=== PATIENT | male | born 1960 | race Caucasian/White ===

== ENCOUNTER 2017-10-08 22:07 | Inpatient (IN) ==
[2017-10-08 23:11] LABS: Basophils # 0.1 K/mcL (0.0-0.2); Basophils % 1.7 %; Eosinophils # 0.3 K/mcL (0.0-0.6); Eosinophils % 3.9 %; Hematocrit 48.8 % (37.5-50.1); Hemoglobin 17.2 g/dL (12.9-16.9); Immature Granulocytes % 0.3 % (0-4); Lymphocytes # 1.5 K/mcL (0.6-4.6); Lymphocytes % 21.2 %; Mean Corpuscular HGB Conc 35.2 g/dL (31.6-35.5); Mean Corpuscular Hemoglobin 32.4 pg (28.0-33.3); Mean Corpuscular Volume 91.9 fL (83.0-100.0); Mean Platelet Volume 8.7 fL (9.4-12.4); Neutrophils # 4.2 K/mcL (1.6-8.9); Platelet Count 380 K/mcL (140-400); Red Blood Count 5.31 M/mcL (4.19-5.50); Red Cell Distribution Width 13.1 % (11.5-14.5); Segmented Neutrophils % 58.9 %
[2017-10-08 23:31] LABS: Bilirubin,Urine Negative (Negative); Blood,Urine Negative (Negative); Clarity,Urine Clear (Clear); Color,Urine Yellow (Yellow); Glucose,Urine (UA) Normal (Normal); Ketones,Urine Negative (Negative); Leukocyte Esterase,Urine Negative (Negative); Nitrite,Urine Negative (Negative); PH,Urine 6.5 pH Units (5.0-8.0); Protein,Urine Negative (Neg-Trace); Specific Gravity,Urine 1.015 (1.010-1.025); Urobilinogen,Urine Normal (Normal)
[2017-10-08 23:34] LABS: Alanine Aminotransferase 14 Units/L (7-52); Albumin 4.5 g/dL (3.5-5.7); Albumin/Globulin Ratio 1.6 (1.1-2.2); Alkaline Phosphatase 88 Units/L (34-104); Aspartate Amino Transferase 24 Units/L (13-39); BUN/Creatinine Ratio 17 (6-26); Bilirubin,Direct 0.1 mg/dL (0.0-0.2); Bilirubin,Indirect 0.2 mg/dL (0.0-1.2); Bilirubin,Total 0.3 mg/dL (0.3-1.0); Blood Urea Nitrogen 12 mg/dL (6-20); Calcium 9.6 mg/dL (8.6-10.3); Carbon Dioxide 22 mEq/L (23-29); Chloride 106 mEq/L (98-107); Globulin 2.8 g/dL (2.4-3.5); Glucose 102 mg/dL (70-105); Osmolality,Calculated 284 (280-300); Sodium 137 mEq/L (136-145); Total Protein 7.3 g/dL (6.4-8.9); eGFR For African Americans > 60 (> 60); eGFR For Non-African Americans > 60 (> 60)
[2017-10-08 23:36] LABS: Troponin I 0.15 ng/mL (< 0.04)
[2017-10-08] MEDS ORDERED: Heparin 25,000 UNIT/500 ML D5W 25,000 UNIT/500 ML BAG IVC SCH (23:45)
[2017-10-08] MEDS ORDERED: Aspirin 81 MG TAB.CHEW ONE (23:47)
[2017-10-08] MEDS ORDERED: *HR* Heparin 5,000 UNIT/ML VIAL ONE (23:47)
[2017-10-08] MEDS ORDERED: 0.9 % Sodium Chloride 1,000 ML ONE (23:47)
[2017-10-08] MEDS ORDERED: *HR* Ticagrelor 90 MG TABLET ONE (23:47)
[2017-10-08] MEDS ORDERED: *HR* Heparin 5,000 UNIT/ML VIAL IVP ONE (23:59)
[2017-10-08] MEDS ORDERED: *HR* Heparin 5,000 UNIT/ML VIAL IVP PRN ×2 (23:59)
[2017-10-09] MEDS ORDERED: *HR* Ticagrelor 90 MG TABLET PO ONE (00:01)
[2017-10-09] MEDS ORDERED: Aspirin 81 MG TAB.CHEW PO STA (00:01)
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
[2017-10-09] MEDS ORDERED: Heparin 1,000 UNITS/500 mL 500 ML ONE (00:14)
[2017-10-09] MEDS ORDERED: *HR* Heparin 10,000 UNIT/10 ML VIAL ONE (00:14)
[2017-10-09] MEDS ORDERED: 0.9 % Sodium Chloride 1,000 ML ONE ×2 (00:14→00:39)
[2017-10-09] MEDS ORDERED: ISOVUE-370 200 ML INFUS..BTL IV ONE ×2 (00:15→00:39)
[2017-10-09] MEDS ORDERED: Nitroglycerin 1,000 MCG/10 ML VIAL IV ONE (00:15)
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
--- NOTE | 2017-10-09 01:30 | Invasive Diagnostic Lab Proc ---
Name: Lance Preciado Date of Study: 10/09/2017 Date: 1960 Ht: 72.0in Medical Record#: [id number] Age: 57 Wt: 163.14lb Gender: Male BSA: 1.95 Order #: [id number] BMI: 22.1 Physicians Procedure Physician: Austin Salas DO Referring MD: Referring MD: Staff Name Position Time In AlixHakan RN Monitor 12:37 AM Rose Aguilera RN Coffee Roaster Helper 12:37 AM Thalia Mckinley RT Scrub 12:37 AM Indications Indication STEMI Procedures Performed Procedure L HRT ARTERY/VENTRICLE ANGIO PRQ CARD REVASC VA 1 VSL Pre-Procedure Checklist Informed consent is complete signed and on chart. H&P is on chart. ID band is on and ID verified with patient. Patient NPO for procedure The procedure was described for the patient and questions were answered. Blood Pressure: 115/84 ECG is on chart. Rhythm: NSR Plan of Care Patient will tolerate the procedure without complications. Adequate level of comfort will be maintained. Hemodynamics will remain stable Patient will recover from procedure without complications. Respiratory function will be maintained. Cardiac rhythm will remain stable. Patient temperature will be maintained. Patient and/or family have verbalized understanding of the procedure. Patient Education Chief Complaint/Reason for Test: Cardiac Cath Developmental Category: Adult (18-64 years) Developmentally Appropriate for Age: Yes Learning Barriers: None Education Needs: Procedure Education Method: Verbal Information Taught: Cardiac Cath Educational Evaluation: Able to repeat information Intravenous Access Time IV Size Location DC'd Fluid/Drip Rate Units RN 12:29 AM 18g 1 1/4" Patent On Arrival Lt Arm Rose Aguilera RN 12:29 AM 18g 1 1/4" Patent On Arrival Rt Antecubital Rose Aguilera RN Allergies No Known Allergies NKA Vital Signs Time BP (mmHg) HR (bpm) O2 Sat. RR (bpm) LOC 12:29 AM 128 / 87 83 96 % 18 5 = Fully awake and oriented or at pre-proc level 12:49 AM / % 4 = Oriented but drowsy 12:49 AM / % 4 = Oriented but drowsy 01:04 AM / % 4 = Oriented but drowsy 12:50 AM 126 / 88 85 100 % 12:54 AM 135 / 91 85 99 % 12:59 AM 138 / 85 83 99 % 01:04 AM 136 / 89 87 99 % 01:09 AM 109 / 71 86 96 % 01:15 AM 129 / 98 87 98 % Procedural Medications Time Medication Dose Units Method Given By 12:50 AM Oxygen 2 L/min nasal cannula Rose Aguilera RN 12:53 AM Lidocaine 2% 10 ml Subcutaneous Austin Salas DO 01:07 AM Nitroglycerin 100 mcg Intracoronary Austin Salas DO ASA Classification: CLASS III- Severe systemic disease (i.e. prior AMI, diabetes with vascular complications, morbid obesity) Emergent Procedure: ASA score is assumed Bernabe Score Preprocedure Postprocedure Activity 2- Moves 4 extremities sustained head lift Activity 2- Moves 4 extremities sustained head lift Circulation 2- SBP +/= 20 points of pre-anesthetic level Circulation 2- SBP +/= 20 points of pre-anesthetic level Consciousness 2- Awake and alert oriented x 3 Consciousness 2- Awake and alert oriented x 3 O2 Saturation 2- Able to maintain O2 satruation of 92% on room air O2 Saturation 2- Able to maintain O2 satruation of 92% on room air Respiratory 2- Able to deep breathe and cough well Respiratory 2- Able to deep breathe and cough well Total Score 10 Total Score 10 Contrast Agent: Isovue Diagnostic Contrast: 60 ml Total Contrast: 60 ml Fluoro Dose: 438 mGy Activated Clotting Time Time Seconds to Clot 01:03 AM 311 Procedure Log Time Note Enter By 12:37 AM Pt arrived to central lab technician 2 at 00:37 [facility] 12:37 AM Hakan Thomson RN Position: Monitor Time in: 00:37 [facility] 12:37 AM Rose Aguilera RN Position: Coffee Roaster Helper Time in: 00:37 [facility] 12:38 AM Thalia Mckinley Position: Scrub Time in: 00:37 [facility] 12:38 AM Patient charges- Angio tray pack, Navilyst 3mm J, Pulse Oximetry and ACIST tubing and transducer [facility] 12:38 AM Hair removed from procedure site in procedure lab using clippers. Bilateral groin prepped with Chloraprep by Thalia Mckinley, then patient was draped. Skin intact. [facility] 12:38 AM Physician arrived 00:38 [facility] 12:38 AM Leroy completed jcallan 12:38 AM Sign in performed according to hospital policy. jcallihan 12:38 AM Procedure start 00:38 jcallihan 12:48 AM CathStat 12:48 AM Vitals capture started with the following parameters, Patient=Adult, Interval=5 min, Initial Vkfqkgou=758 mmHg, Deflation Rate=3 mmHg, Cuff placed on Right Arm 12:49 AM Time: 00:49 Patient comfortable and pain free: Yes jcallihan 12:49 AM Time: 00:49LOC: 4 = Oriented but drowsy jcallihan 12:50 AM HR=85 bpm, KQEA=553/88 mmhg, ToC2=926.0 %, Comment=sr 12:50 AM Time: 00:50 Oxygen on at 2 L/min per nasal cannula [facility] 12:50 AM Pressure channel 2 zeroed. 12:52 AM Clinical Presentation: [facility] or [facility] AM Time out performed according to hospital policy [facility] 12:53 AM Time: 00:53 10 ml Lidocaine 2% to right groin Subcutaneous Given by Austin Salas DO [facility] 12:53 AM Micro-Introducer Kit utilized for sheath placement jcallihan 12:54 AM HR=85 bpm, AOIC=945/91 mmhg, SpO2=99.0 %, Comment=sr 12:54 AM Access obtained by percutaneous puncture. 6Fr 10cm Terumo [place] sheath placed in right Femoral artery. [id number] jcallan 12:55 AM 6Fr FL 4 catheter inserted over the wire [facility] 12:57 AM LCA angiography performed in multiple views. jcallihan 12:57 AM Catheter removed jcallihan 12:59 AM Recorded Pressure: LV, HR=84, Condition=Condition 1 (Left Ventricle) LV 130/-3/0 12:59 AM 6Fr FR 4 [facility] C[facility]ter selectively placed in left [facility] 12:59 AM Bolus angiogram of left Ventricle complete: HAND INJECTED 10 ML jcallihan 12:59 AM HR=83 bpm, STDJ=909/85 mmhg, SpO2=99.0 % 12:59 AM Recorded Pressure: LV, Ao, HR=82, Condition=Condition 1 (Left Ventricle) LV 129/82/81, (Aorta) Ao 129/71/96 01:00 AM repositioned catheter to RCA jcallihan :00 AM RCA angiography performed in multiple views. an :00 AM Catheter removed jcallan : AM PCI Status Emergency jcallihan :01 AM PCI Indication: Immediate PCI for STEMI jcallihan 01:02 AM PCI lesion in Mid RCA. Pre Stenosis: 90 Pre CHRIS Flow: 3: Complete and Brisk Flow/Perfusion jcallihan :02 AM 6Fr JR 4 Runway guide catheter was used to cannulate the PCI vessel successfully. reused? No jcallihan :02 AM .014 ChoICE PT Extra Support 300cm guide wire across target lesion- successful. reused? No jcallan :02 AM Inflation device was opened. jcallihan :03 AM At 01:03 the ACT was 311 seconds. jcallihan :03 AM Recorded Pressure: Ao, HR=82, Condition=Condition 1 (Aorta) Ao 130/73/97 01:04 AM HR=87 bpm, QQUR=297/89 mmhg, SpO2=99.0 %, Comment=sr 01:04 AM Time: 00:49 Patient comfortable and pain free: Yes jcallihan :04 AM Time: 00:49LOC: 4 = Oriented but drowsy jcallihan :05 AM 3.0mm x 16mm Synergy drug-eluting stent across target lesion- successful [facility][id number] [facility] AM Stent deployed @ 14 niles for [facility] AM Stent delivery system removed intact. jcallan :07 AM Time: 01:07 Nitroglycerin 100 mcg Intracoronary Given by Austin Salas DO [facility] AM Guide wire removed intact. jcallihan 01:08 AM Coronary Dominance: right jcallihan 01:09 AM Right Coronary, Right Posterior Descending Arteries with Right Posterolateral and Acute Marginal branches with 90 % stenosis. If graft is supplying this area, 0 % stenosis jcallihan :09 AM Circumflex, Obtuse Marginal, Left Posterior Descending, and Left Posterolateral Coronary Arteries with 80 % stenosis. If graft is supplying this area, 0 % stenosis jcallihan :09 AM Lesion found in Mid Circumflex. Pre Stenosis: 80 Pre CHRIS Flow: 3: Complete and Brisk Flow/Perfusion jcallihan 01:09 AM HR=86 bpm, MBPI=392/71 mmhg, SpO2=96.0 %, Comment=sr 01:09 AM Guide catheter removed intact. jcallihan 01:10 AM Groin shot obtained. jcallihan 01:10 AM Procedure completed at 01:10 jcallihan 01:10 AM Did you address CHRIS flow and Dominance? Yes jcallihan 01:10 AM Sign out completed: Radiation Dose 438 mGy Fluoro Time: 4.6 Isovue 370 - 200ml contrast 60 ml given by Austin Salas DO. Complications: NoneCardiac Rehab Consult needed: YesConfirmed administered medications: Yes jcallihan 01:11 AM Isovue 370 - 200ml,2 Bottle(s) used. jcallihan 01:11 AM Sheath left in place to be pulled on floor/holding areaV+Pad jcallihan 01:11 AM Estimated Blood Loss: less than 20cc jcallihan 01:11 AM Post ECG NSR jcallihan 01:11 AM Post Blood Pressure 109/71 jcallihan 01:11 AM 01:11 Post Pulses Bilateral DP & PT 2+ jcallihan 01:11 AM Information taught Cardiac Cath, PCI, and METER INSTALLER/Stent jcallihan 01:11 AM Education needs Procedure, Plan of Care, and Responsibilities of Patient in Care jcallihan 01:11 AM Learning barriers :None jcallihan 01:11 AM Education Methods Verbal jcallihan 01:11 AM Education evaluation Able to repeat information jcallihan 01:12 AM Site status No bleeding/hematoma - Rt Groin as reported by Thalia Mckinley RT at 01:11 jcallihan 01:12 AM Opsite applied jcallihan 01:12 AM Hematoma? No. jcallihan 01:12 AM Plavix, Effient or Brilinta given Yes jcallihan 01:12 AM RN going to check for family members jcallihan 01:12 AM Complications: None jcallihan 01:12 AM Fluoro Time: 4.6 jcallihan 01:12 AM Isovue 370 - 200ml contrast 60 ml given by Austin Salas. jcallihan 01:12 AM Radiation Dose 438 mGy jcallihan 01:15 AM HR=87 bpm, BEJT=344/98 mmhg, SpO2=98.0 %, Comment=sr 01:19 AM Time: 01:04LOC: 4 = Oriented but drowsy jcallihan 01:19 AM Time: 01:04 Patient comfortable and pain free: Yes jcallihan 01:21 AM Patient out of room: 01:21 jcallihan 01:21 AM Report given to Trip VERDUZCO Pt taken to ICU Room #7. 01:21 jcallihan 01:22 AM ASA Class CLASS III- Severe systemic disease (i.e. prior AMI, diabetes with vascular complications, morbid obesity) jcallihan Complications Complication None None Hemodynamics Pressures Site Systolic/A Wave Diastolic/V Wave Mean LV 130 -3 0 LV 129 82 81 AO 129 71 96 AO 130 73 97 Post Procedure Information Blood Pressure: 109/71 mmHg Rhythm: NSR Post procedural instructions were given Site Checks Time Location Status Staff Sheath In? Note 01:11 AM Rt Groin No bleeding/hematoma Thalia Mckinley RT Pulses Time Site Pre-Procedure Post-Procedure Note 1:11:00 AM Bilateral DP & PT 2+ Updated by Hakan Thomson RN on 10/09/2017 1:23:18 AM electronically signed on 10/09/2017 1:23:54 AM with status of Final
[2017-10-09 01:40] LABS: Amphetamine Screen,Urine Negative ng/mL (Cutoff=1000); Barbiturate Screen,Urine Negative ng/mL (Cutoff=200); Benzodiazepines Screen,Urine Negative ng/mL (Cutoff=200); Cannabinoid Screen,Urine Negative ng/mL (Cutoff = 50); Cocaine Screen,Urine Negative ng/mL (Cutoff= 300); Opiate Screen,Urine Negative ng/mL (Cutoff=300); Phencyclidine Screen,Urine Negative ng/mL (Cutoff=25)
[2017-10-09 01:45] LABS: Ethanol 287 mg/dL (Less than 10)
--- NOTE | 2017-10-09 01:56 | Cardiology Consult Note ---
Date of Encounter: 10/09/17 Time of Encounter: 00:00 Assessment and Plan (1) STEMI (ST elevation myocardial infarction) Current Visit: Yes Status: Acute change to full code, proceed with emergent LHX/possible. Discussion w patient/family: The assessment and plan as outlined above was discussed with the patient and/or family members who expressed understanding and agreement. All questions were answered. Thank you for involving us in the care of your patient. Please call with any questions. History of Present Illness Consult date: 10/08/17 Consult reason: abnormal EKG Chief complaint: Syncope History of present illness: Mr. Preciado is a 57 year old male who presented to ER by squad with complaint of dizziness, syncope. Pt was filling his keosene heater, became dizzy, fell forward, striking his head and shoulder, had trouble getting up, called squad who then transported pt to hospital. Pt reports has been drinking beer all evening, estimates has had six to eight beers. He underwent intial evalauation for neurologic eval, including head CT due to syncope, mild confusion. EKG obtained showed mild St SEGMENT elevation inf leads, concerning, but not diagnostic. Pt underwent repeat EKG which then met critieria for STEMI. Discussed with Dr. Wise in ER, pt has previously determined his code satus to be DNR. Discussed with pt, although is obviously under the infuence, and Dr Wise, including my recommendations to proceed with emergent LHC/PCI. Discussed code status, will change to full code x 24 hours, discuss again when pt more sober. Past Med Surg Social Fam HX - Past Medical History Medical history: hepatitis, hyperlipidemia, hypertension, other (Squamous cell lung cancer.) Psychiatric history: anxiety, depression - Social History Smoking Status: Current every day smoker Smokeless Tobacco Status: No Alcohol use: heavy, recent Drug use: none Medications and Allergies Budesonide/Formoterol 160/4.5 [Symbicort 160/4.5] 2 puff IH BIDR 02/11/17 [ History] Lisinopril [Zestril] 10 mg PO DAILY 02/11/17 [History] Simvastatin [Zocor] 10 mg PO DAILY 02/11/17 [History] Trazodone HCl 100 mg PO QPM 02/11/17 [History] HYDROcodone/Acet 7.5/325 mg [[place] 7.5-325 mg] 1 - 1.5 tab PO Q6H PRN 05/12/17 [ History] Pregabalin [Lyrica] 100 mg PO QID 07/22/17 [History] 3 Allergy/AdvReac Type Severity Reaction Status Date / Time No Known Allergies Allergy Verified 10/08/17 23:51 All Systems Review: The remainder of the systems were reviewed and are negative - Constitutional Constitutional: lethargy - Respiratory Respiratory: cough, dyspnea, other (Pt is completing chemo and radiation tx for lung cancer. ) - Psychiatric Psychiatric: depression (on disablility since 2001 for depression) Physical Examination General: Conversant, No Apparent Distress HEENT: Atraumatic, Normocephaly Neck: No JVD Cardiac: Reg Rate and Rhythm, Normal S1 and S2, No Murmur Lungs: Normal Breath Sounds, No Wheeze, Rales, Rhonchi Neuro: Alert and responsive Skin: No rashes noted on visualized skin Musculoskeletal: No Chest Wall Tenderness Extremities: No Clubbing, No Cyanosis Results 10/08/17 23:00 10/08/17 23:00 Consult Discharge Plan - Plan Referrals: Sandra Bell MD [Primary Care Provider] -
[2017-10-09] MEDS ORDERED: *HR* Atropine Sulfate 1 MG/10 ML SYRINGE ONE (02:57)
[2017-10-09 03:02] LABS: BUN/Creatinine Ratio 17 (6-26); Blood Urea Nitrogen 11 mg/dL (6-20); Calcium 8.9 mg/dL (8.6-10.3); Carbon Dioxide 22 mEq/L (23-29); Chloride 111 mEq/L (98-107); Glucose 83 mg/dL (70-105); Osmolality,Calculated 293 (280-300); Potassium 4.1 mEq/L (3.5-5.1); Sodium 142 mEq/L (136-145); eGFR For African Americans > 60 (> 60); eGFR For Non-African Americans > 60 (> 60)
[2017-10-09 03:05] LABS: Activated Partial Thrombo Time 41.2 Seconds (26.0-36.0)
[2017-10-09] MEDS: 0.9 % Sodium Chloride 1,000 ML IVC SCH ×3 (03:05→20:44)
[2017-10-09 03:13] LABS: Basophils # 0.1 K/mcL (0.0-0.2); Basophils % 1.7 %; Eosinophils # 0.3 K/mcL (0.0-0.6); Eosinophils % 4.7 %; Hemoglobin 16.4 g/dL (12.9-16.9); Immature Granulocytes % 0.3 % (0-4); Lymphocytes # 1.4 K/mcL (0.6-4.6); Lymphocytes % 20.1 %; Mean Corpuscular HGB Conc 34.9 g/dL (31.6-35.5); Mean Corpuscular Hemoglobin 32.1 pg (28.0-33.3); Mean Platelet Volume 8.8 fL (9.4-12.4); Monocytes % 14.8 %; Neutrophils # 4.1 K/mcL (1.6-8.9); Platelet Count 365 K/mcL (140-400); Prothrombin Time 11.1 Seconds (9.4-12.1); Red Blood Count 5.11 M/mcL (4.19-5.50); Red Cell Distribution Width 13.2 % (11.5-14.5); Segmented Neutrophils % 58.4 %
[2017-10-09] MEDS: Aspirin 81 MG TAB.CHEW PO SCH (08:58)
[2017-10-09] MEDS: *HR* Ticagrelor 90 MG TABLET PO SCH ×2 (08:58→21:43)
[2017-10-09] MEDS: *HR* HYDROcodone/Acet 5/325 mg TABLET PO PRN ×3 (10:16→23:09)
--- NOTE | 2017-10-09 10:33 | Internal Med History&Physical ---
Date of Encounter: 10/09/17 Time of Encounter: 10:33 Internal Medicine - H&P: HPI Chief complaint: Chest pain Admitted From: Emergency Dept Plans for Post Hospital Care: Home History of present illness: Mr. Preciado is a 57 year old male patient who presented overnight in the ER after a fall while intoxicated. He struck his head and arm but did not sustain any significant injury. He had a CT-Head and C-Spine both w/o contrast which did not show acute pathology including fracture, dislocation or ICH. While in the ER his BAL was 287 but he denies a history of DTs or alcohol withdrawal seizures. His ECG showed ST elevation and his troponins were elevated so Cardiology was called for a STEMI. He was taken to the cardiac cath lab radiology technologist for PTCA. He tolerated the procedure and was sent to the ICU. He's chest pain free and hemodynamically stable. 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 Because of the urgency to go to the cardiac cath lab radiology technologist he was not officially admitted overnight. He will now be admitted to the Hospitalist service and cardiology will continue to follow in consultation. Past Med Surg Social Fam HX - Past Medical History Medical history: hepatitis, hyperlipidemia, hypertension, other (Squamous cell lung cancer.) Psychiatric history: anxiety, depression - Past Surgical History Surgical History: splenectomy - Social History Smoking Status: Current every day smoker Packs per day: 1 Smokeless Tobacco Status: No Alcohol use: heavy, recent Drug use: none Internal Medicine - H&P: Meds Budesonide/Formoterol 160/4.5 [Symbicort 160/4.5] 2 puff IH BIDR 02/11/17 [ History] Lisinopril [Zestril] 10 mg PO DAILY 02/11/17 [History] Simvastatin [Zocor] 10 mg PO DAILY 02/11/17 [History] Trazodone HCl 100 mg PO QPM 02/11/17 [History] Pregabalin [Lyrica] 150 mg PO BID 07/22/17 [History] Albuterol Sulfate [Proair Hfa] 2 puff IH Q4H PRN 10/09/17 [History] Aspirin Enteric Coated [Aspirin EC] 81 mg PO DAILY 10/09/17 [History] Diclofenac Sodium [Voltaren] 75 mg PO BID 10/09/17 [History] HYDROcodone/Acet 5/325 mg [[place] 5-325 mg] 1.5 tab PO Q6H PRN 10/09/17 [History] Venlafaxine XR (24 HR) [Effexor XR] 75 mg PO DAILY 10/09/17 [History] 3 Allergy/AdvReac Type Severity Reaction Status Date / Time No Known Allergies Allergy Verified 10/08/17 23:51 All Systems PM: A 10-system review of systems was performed and is negative for pertinent findings except as documented above in the HPI. - Constitutional Constitutional: no chills, no fever(s), no falls, no lethargy - EENT Eyes: no blurry vision, no diplopia Nose, mouth and throat: no dental pain, no epistaxis, no nasal congestion - Cardiovascular Cardiovascular ROS IM: chest pain, no diaphoresis, no dyspnea, no edema - Respiratory Respiratory: no hemoptysis, no wheezing, no stridor - Gastrointestinal Gastrointestinal: no belching, no change in stool character, no melena, no tenesmus - Genitourinary Genitourinary ROS male: no dysuria - Musculoskeletal Musculoskeletal ROS IM: no arthralgias, no myalgias - Psychiatric Psychiatric: no anxiety, no depression, no suicidal ideation - Constitutional Vitals: Temp Pulse Resp BP Pulse Ox 97.9 F 112 35 160/82 93 10/09/17 08:00 10/09/17 10:00 10/09/17 10:00 10/09/17 10:00 10/09/17 10:00 General appearance: Present: cooperative, A&O X 3, pleasant, no acute distress - Head Head exam: Present: atraumatic, normocephalic - Eye Eye exam: Present: EOMI, PERRL, conjuntiva pink, sclera anicteric Pupils: Present: PERRL - Neck Neck exam general surgery: Present: supple, trachea midline. Absent: lymphadenopathy - Respiratory Respiratory exam: Present: CTAB. Absent: accessory muscle use, rales, rhonchi, wheezes - Cardiovascular Cardiovascular exam: Present: RRR, +S1, +S2. Absent: diastolic murmur, gallop, rubs, systolic murmur - GI/Abdominal GI/Abdominal exam: Present: normal bowel sounds, soft, no peritoneal signs. Absent: distended, guarding, rebound, rigid, tenderness - Extremities Exam Extremities exam: Present: calf tenderness, warm. Absent: cyanotic, pedal edema - Neurological Exam Neurological exam: Present: CN II-XII intact, oriented X3, no focal deficits. Absent: pronater drift, facial droop, speech deficit - Psychiatric Psychiatric exam: Present: normal affect, normal mood - Skin Skin exam: Present: dry, intact Internal Med - H&P Results - Labs CBC & Chem 7: 10/09/17 02:27 10/09/17 02:27 Labs: Short CBC 10/09/17 Range/Units 02:27 WBC 7.0 (4.3-11.1) K/mcL Hgb 16.4 (12.9-16.9) g/dL Hct 47.0 (37.5-50.1) % Plt Count 365 (140-400) K/mcL Neutrophils # 4.1 (1.6-8.9) K/mcL BMP 10/09/17 02:27 Sodium 142 Potassium 4.1 Chloride 111 H Carbon Dioxide 22 L BUN 11 Creatinine 0.64 L Glucose 83 Calcium 8.9 - Assessment and plan (1) STEMI (ST elevation myocardial infarction) Current Visit: Yes Status: Acute Assessment and plan: Continue telemetry Continue aspirin and Brilinta Continue statin and BB CP free today No hematoma at cath site Cardiology still following Qualifiers: Involved coronary artery: right coronary artery Qualified Code(s): I21.11 - ST elevation (STEMI) myocardial infarction involving right coronary artery (2) Intoxication Current Visit: Yes Status: Acute Assessment and plan: Add CIWA protocol Pt denies h/o DTs or ETOH withdrawal seizures He does not appear tremulous (3) Squamous cell carcinoma Current Visit: No Status: Chronic Assessment and plan: S/p RTX and Chemo. Now on Immunotherapy He continues to f/u as OP with Oncology Code(s): C44.92 - Squamous cell carcinoma of skin, unspecified (4) Hepatitis C Current Visit: No Status: Chronic Assessment and plan: In remission s/p treatment Qualifiers: Qualified Code(s): B18.2 - Chronic viral hepatitis C Code(s): B19.20 - Unspecified viral hepatitis C without hepatic coma (5) Chronic obstructive pulmonary disease without exacerbation Current Visit: No Status: Chronic (6) Essential hypertension Current Visit: No Status: Chronic Assessment and plan: Continue home medications Code(s): I10 - Essential (primary) hypertension - Time Spent With Patient Total time spent is greater than 50% in coordination of care (as documented) at patient's floor/unit and/or counseling patient: Greater than 35 minutes
--- NOTE | 2017-10-09 11:39 | Cardiology Progress Note ---
Date of Encounter: 10/09/17 Time of Encounter: 11:36 Assessment and Plan (1) STEMI (ST elevation myocardial infarction) Current Visit: Yes Status: Acute S/P STEMI, emergent LHC overnight with KEDAR to mRCA. Final report pending. TTE pending. DAPT (ASA and Brilinta) uninterrupted x 1 year. Pt verbalizes understanding. Continue Statin, BB, ACEi. Pt denies chest pain overnight. Intermittent dyspnea, but known underlying pulmonary issues. Right femoral access site healing well. No bleeding, hematoma, or ecchymosis noted. No significant events on telemetry. Obtain EKG s/p STEMI and revascularization. Continue to follow. Qualifiers: Involved coronary artery: right coronary artery Qualified Code(s): I21.11 - ST elevation (STEMI) myocardial infarction involving right coronary artery (2) Essential hypertension Current Visit: Yes Status: Acute Elevated this AM--BB was started and resumed Lisinopril at lower dose. Uptitrate as necessary. (3) Tobacco abuse Current Visit: Yes Status: Acute Smoking cessation counseling given. Discussion w patient/family: The assessment and plan as outlined above was discussed with the patient and/or family members who expressed understanding and agreement. All questions were answered. Thank you for involving us in the care of your patient. Please call with any questions. I will discuss all the above with Dr. Sherman and make changes as necessary. Subjective Principal diagnosis: STEMI Interval history: S/P STEMI and emergent LHC overnight with KEDAR to mRCA--final report pending. TTE pending. Pt denies chest pain. Intermittent dyspnea. Troponin 0.15. Objective Vital Signs, Last 4 Hours Temp Pulse Resp BP Pulse Ox 10/09/17 10:00 112 35 160/82 93 10/09/17 09:11 100 10/09/17 09:00 100 35 159/88 95 10/09/17 08:00 97.9 F 99 16 143/83 94 Vital Signs Temp Pulse Pulse Resp BP Pulse Ox 10/09/17 10:00 112 35 160/82 93 10/09/17 09:11 100 10/09/17 09:00 100 35 159/88 95 10/09/17 08:00 97.9 F 99 16 143/83 94 10/09/17 07:00 102 26 163/93 94 10/09/17 06:00 85 16 137/78 95 10/09/17 05:00 90 16 104/66 95 10/09/17 04:00 84 16 144/87 95 10/09/17 03:42 85 85 18 114/69 94 10/09/17 03:25 84 84 18 122/81 95 10/09/17 03:20 84 84 20 122/68 95 10/09/17 03:15 81 81 20 123/70 95 10/09/17 03:10 81 81 20 112/90 94 10/09/17 03:00 83 16 117/79 95 10/09/17 02:53 86 86 12 132/97 10/09/17 02:00 81 16 128/83 95 10/09/17 01:50 82 10/09/17 01:40 97.8 F 84 86 22 130/86 96 10/09/17 01:34 97.8 F 84 18 130/86 96 10/09/17 00:20 82 18 115/84 95 10/09/17 00:13 83 18 127/81 96 10/08/17 23:55 83 18 128/87 96 10/08/17 22:48 97.2 F L 79 20 126/77 98 Intake and Output 10/08/17 10/09/17 10/09/17 23:59 07:59 15:59 Intake Total 400 / 400 Output Total 1200 / 1200 2100 / 2100 Balance -1200 / -1200 -1700 / -1700 Intake: Oral 400 / 400 Output: Urine 1200 / 1200 2099 / 2100 Other: Meal Breakfast Percent of Meal Consumed 100% Stool Size Moderate Stool Consistency loose liquid Stool Color Brown # Bowel Movement Diapers 1 Weight 74.843 kg Blood Glucose* 78 General: Conversant, No Apparent Distress HEENT: Atraumatic, Normocephaly, Mucus Membranes Moist Neck: No JVD, Normal carotid pulses Cardiac: Reg Rate and Rhythm, Normal S1 and S2, No Murmur Lungs: Normal Breath Sounds, No Wheeze, Rales, Rhonchi Neuro: Alert and responsive, No focal deficits noted Abdomen: Soft, Non-Tender Skin: Other (right femoral access site healing well. No bleeding, hematoma or ecchymosis noted.) Musculoskeletal: No Chest Wall Tenderness Extremities: No Clubbing, No Cyanosis, No Edema, Normal Pulses Results 10/09/17 02:27 10/09/17 02:27 Lab Results 10/09/17 10/09/17 10/09/17 02:27 02:27 02:27 WBC 7.0 Hgb 16.4 Hct 47.0 Plt Count 365 INR 1.0 APTT 41.2 H Sodium 142 Potassium 4.1 Chloride 111 H Carbon Dioxide 22 L BUN 11 Creatinine 0.64 L Glucose 83 Calcium 8.9 Short CBC 10/09/17 10/08/17 Range/Units 02:27 23:00 WBC 7.0 7.1 (4.3-11.1) K/mcL Hgb 16.4 17.2 H (12.9-16.9) g/dL Hct 47.0 48.8 (37.5-50.1) % Plt Count 365 380 (140-400) K/mcL Neutrophils # 4.1 4.2 (1.6-8.9) K/mcL BMP 10/09/17 10/08/17 Range/Units 02: 23:00 Sodium 142 137 (136-145) mEq/L Potassium 4.1 4.0 (3.5-5.1) mEq/L Chloride 111 H 106 (98-107) mEq/L Carbon Dioxide 22 L 22 L (23-29) mEq/L BUN 11 12 (6-20) mg/dL Creatinine 0.64 L 0.69 L (0.70-1.30) mg/dL Glucose 83 102 (70-105) mg/dL Calcium 8.9 9.6 (8.6-10.3) mg/dL Cardiac Enzymes 10/08/17 Range/Units 23:00 Troponin I 0.15 H* (< 0.04) ng/mL Liver Function 10/08/17 Range/Units 23:00 Total Bilirubin 0.3 (0.3-1.0) mg/dL Direct Bilirubin 0.1 (0.0-0.2) mg/dL AST 24 (13-39) Units/L ALT 14 (7-52) Units/L Alkaline Phosphatase 88 (34-104) Units/L Albumin 4.5 (3.5-5.7) g/dL Urine 10/08/17 Range/Units 23:21 Urine Color Yellow (Yellow) Urine Clarity Clear (Clear) Urine pH 6.5 (5.0-8.0) pH Units Ur Specific [place] 1.015 (1.010-1.025) Urine Protein Negative (Neg-Trace) mg/dL Urine Glucose (UA) Normal (Normal) mg/dL Impressions Cervical Spine CT 10/08/17 22:53 IMPRESSION: Degenerative and postoperative changes with no evidence for acute fracture. D/ / Fidel Morris MD / Fidel Morris MD Interpreting Provider: Fidel Morris MD Chest X-Ray 10/08/17 22:53 IMPRESSION: Negative portable study. D/ / Elizabeth Valero Cha, MD / Elizabeth Valero Cha, MD Interpreting Provider: Elizabeth Valero Cha, MD Head CT 10/08/17 22:53 IMPRESSION: No acute intracranial abnormality. D/ / Fidel Morris MD / Fidel Morris MD Interpreting Provider: Fidel Morris MD Active Medications Hydrocodone Bitart/Acetaminophen ([place] 5-325 Mg) 1.5 tab PO Q6HR PRN PRN Reason: Pain Stop: 04/10/18 10:05 Last Admin: 10/09/17 10:16 Dose: 1.5 tab Aspirin (Aspirin) 81 mg PO DAILY [facility] Stop: 04/10/18 09:01 Last Admin: 10/09/17 08:58 Dose: 81 mg Carvedilol (Coreg) 3.125 mg PO BIDWM [facility] Stop: 04/10/18 08:01 Last Admin: 10/09/17 08:58 Dose: 3.125 mg Sodium Chloride (0.9 % Sodium Chloride) 1,000 mls @ 100 mls/hr IVC .Q10H [facility] Stop: 04/10/18 01:46 Last Admin: 10/09/17 03:05 Dose: 100 mls/hr Lisinopril (Zestril) 5 mg PO DAILY [facility] PRN Reason: Protocol Stop: 04/10/18 10:16 Last Admin: 10/09/17 10:16 Dose: 5 mg Rosuvastatin Calcium (Crestor) 40 mg PO HS [facility] Stop: 04/10/18 21:01 Ticagrelor (Brilinta) 90 mg PO BID [facility] Stop: 04/10/18 09:01 Last Admin: 10/09/17 08:58 Dose: 90 mg - Imaging and Cardiology Echo: pending - EKG Interpretation EKG results cardiology: other (12 hr tele AVG HR 91, SR, no significant pauses or arrhythmias noted.) Consult Discharge Plan - Plan Referrals: Sandra Bell MD [Primary Care Provider] -
[2017-10-09] MEDS: *HR* Heparin 5,000 UNIT/ML VIAL SQ SCH ×3 (12:23→19:22)
[2017-10-09] MEDS ORDERED: *HR* HYDROcodone/Acet 5/325 mg TABLET PO PRN (15:11)
[2017-10-09] MEDS: Nicotine 21 MG PATCH.TD24 TD SCH (15:27)
[2017-10-09] MEDS: Venlafaxine XR (24 HR) 75 MG CAP.ER.24H PO SCH (15:27)
[2017-10-09] MEDS ORDERED: Ipratropium/Albuterol Neb 3 ML ONE (16:02)
[2017-10-09] MEDS: Budesonide/Formoterol 160/4.5 MDI IH SCH ×4 (16:10→23:00)
[2017-10-09] MEDS ORDERED: traZODone 50 MG TABLET PO SCH (18:00)
[2017-10-09 19:50] LABS: Basophils # 0.1 K/mcL (0.0-0.2); Basophils % 0.8 %; Eosinophils # 0.2 K/mcL (0.0-0.6); Eosinophils % 2.4 %; Hematocrit 46.2 % (37.5-50.1); Hemoglobin 16.3 g/dL (12.9-16.9); Immature Granulocytes % 0.2 % (0-4); Lymphocytes # 0.8 K/mcL (0.6-4.6); Lymphocytes % 8.3 %; Mean Corpuscular HGB Conc 35.3 g/dL (31.6-35.5); Mean Corpuscular Hemoglobin 32.3 pg (28.0-33.3); Mean Corpuscular Volume 91.5 fL (83.0-100.0); Mean Platelet Volume 9.1 fL (9.4-12.4); Neutrophils # 7.8 K/mcL (1.6-8.9); Platelet Count 357 K/mcL (140-400); Red Blood Count 5.05 M/mcL (4.19-5.50); Segmented Neutrophils % 78.3 %
[2017-10-09 20:05] LABS: BUN/Creatinine Ratio 19 (6-26); Blood Urea Nitrogen 15 mg/dL (6-20); Calcium 9.1 mg/dL (8.6-10.3); Carbon Dioxide 22 mEq/L (23-29); Chloride 106 mEq/L (98-107); Glucose 103 mg/dL (70-105); Osmolality,Calculated 281 (280-300); Potassium 3.8 mEq/L (3.5-5.1); Sodium 135 mEq/L (136-145); eGFR For African Americans > 60 (> 60); eGFR For Non-African Americans > 60 (> 60)
[2017-10-09] MEDS ORDERED: Ondansetron 4 MG/2 ML VIAL IVP PRN (20:17)
[2017-10-09] MEDS: traZODone 50 MG TABLET PO SCH (21:43)
[2017-10-09] MEDS: Diclofenac Sodium 75 MG TABLET PO SCH (21:43)
[2017-10-09] MEDS: Pregabalin 75 MG CAPSULE PO SCH (21:43)
[2017-10-10] MEDS: *HR* Heparin 5,000 UNIT/ML VIAL SQ SCH ×2 (06:13→17:22)
[2017-10-10] MEDS: Budesonide/Formoterol 160/4.5 MDI IH SCH ×4 (07:43→20:35)
[2017-10-10] MEDS: 0.9 % Sodium Chloride 1,000 ML IVC SCH ×2 (08:08→18:39)
[2017-10-10] MEDS: Venlafaxine XR (24 HR) 75 MG CAP.ER.24H PO SCH (08:18)
[2017-10-10] MEDS: Pregabalin 75 MG CAPSULE PO SCH ×2 (08:18→21:51)
[2017-10-10] MEDS: Nicotine 21 MG PATCH.TD24 TD SCH (08:18)
[2017-10-10] MEDS: Diclofenac Sodium 75 MG TABLET PO SCH ×2 (08:19→21:52)
[2017-10-10] MEDS: *HR* HYDROcodone/Acet 5/325 mg TABLET PO PRN ×3 (08:20→21:51)
[2017-10-10] MEDS: *HR* Ticagrelor 90 MG TABLET PO SCH ×2 (08:20→21:50)
--- NOTE | 2017-10-10 09:24 | Cardiology Progress Note ---
Date of Encounter: 10/10/17 Time of Encounter: 09:21 Assessment and Plan (1) STEMI (ST elevation myocardial infarction) Current Visit: Yes Status: Acute S/P STEMI, emergent LHC overnight with KEDAR to mRCA. Final report pending. Troponin 0.15, 0.22. TTE LVEF 55%. Mild concentric left ventricular hypertrophy. Normal right ventricular structure and function. Mild mitral regurgitation. Aortic valve leaflet morphology not well visualized. Mild-moderate aortic regurgitation. No pulmonary hypertension. DAPT (ASA and Brilinta) uninterrupted x 1 year. Pt verbalizes understanding. Continue Statin, BB, ACEi. Will give 30 day free card for Brilinta to have filled by our pharmacy today. Pt denies chest pain overnight. Intermittent dyspnea, but known underlying pulmonary issues. Right femoral access site healing well. No bleeding, hematoma, or ecchymosis noted. No significant events on telemetry. Post STEMI EKG obtained. Will also obtain EKG today. Cardiology signing off. Reconsult PRN. Will coordinate outpt follow-up in 1 week. Please keep pt inpt for another 24 hours. If stable with no events on tele, okay to d/c home tomorrow, 10/11/17. Qualifiers: Involved coronary artery: right coronary artery Qualified Code(s): I21.11 - ST elevation (STEMI) myocardial infarction involving right coronary artery (2) Essential hypertension Current Visit: Yes Status: Acute Currently controlled. Continue BB and ACEi. Uptitrate as necessary. (3) Tobacco abuse Current Visit: Yes Status: Acute Smoking cessation counseling given. Discussion w patient/family: The assessment and plan as outlined above was discussed with the patient and/or family members who expressed understanding and agreement. All questions were answered. Thank you for involving us in the care of your patient. Please call with any questions. I will discuss all the above with Dr. Sherman and make changes as necessary. Subjective Principal diagnosis: STEMI Interval history: S/P STEMI and LHC with KEDAR to mRCA--final report pending. TTE resulted--LVEF 55% . Mild concentric left ventricular hypertrophy. Normal right ventricular structure and function. Mild mitral regurgitation. Aortic valve leaflet morphology not well visualized. Mild-moderate aortic regurgitation. No pulmonary hypertension. Pt denies acute complaints this AM. Objective Vital Signs, Last 4 Hours Temp Pulse Resp BP Pulse Ox 10/10/17 07:45 16 94 10/10/17 06:28 98.1 F 77 17 120/64 92 Vital Signs Temp Pulse Resp BP Pulse Ox 10/10/17 07:45 16 94 10/10/17 06:28 98.1 F 77 17 120/64 92 10/10/17 04:19 98.5 F 86 16 125/84 94 10/09/17 22:54 18 92 10/09/17 22:51 97.9 F 87 16 132/85 91 10/09/17 21:45 81 18 155/89 93 10/09/17 20:25 97.5 F L 86 20 169/89 95 10/09/17 19:30 83 20 160/85 93 10/09/17 18:54 83 15 166/95 93 10/09/17 16:10 16 166/95 94 10/09/17 15:17 98.3 F 94 20 163/95 94 10/09/17 15:00 98.3 F 94 20 163/95 94 10/09/17 14:00 98 16 158/96 32 10/09/17 13:00 99 22 155/88 95 10/09/17 12:00 98.3 F 102 20 162/92 94 10/09/17 11:00 102 152/88 10/09/17 10:00 112 35 160/82 93 Intake and Output 10/09/17 10/10/17 10/10/17 23:59 07:59 15:59 Intake Total 1000 / 1000 1000 / 1000 Output Total 700 / 700 700 / 700 Balance 300 / 300 300 / 300 Intake: IV Fluids 1000 / 1000 1000 / 1000 0.9 % Sodium Chloride 1,000 ML 1000 / 1000 1000 / 1000 @ 100 mls/hr IVC .Q10H [facility] Rx#: [id number] Oral 0 / 0 0 / 0 Output: Urine 650 / 650 700 / 700 Emesis 50 / 50 Other: Meal Dinner Percent of Meal Consumed 50% Weight 77.9 kg 77.9 kg Patient Weight 10/10/17 23:59 Weight 77.9 kg General: Conversant, No Apparent Distress HEENT: Atraumatic, Normocephaly, Mucus Membranes Moist Neck: No JVD, Normal carotid pulses Cardiac: Reg Rate and Rhythm, Normal S1 and S2, No Murmur Lungs: Normal Breath Sounds, No Wheeze, Rales, Rhonchi Neuro: Alert and responsive, No focal deficits noted Abdomen: Soft, Non-Tender Skin: Other (right femoral access site healing well. No bleeding, hematoma or ecchymosis noted.) Musculoskeletal: No Chest Wall Tenderness Extremities: No Clubbing, No Cyanosis, No Edema, Normal Pulses Results 10/09/17 19:24 10/09/17 19:24 Lab Results 10/09/17 10/09/17 10/09/17 19:24 19:24 19:24 WBC 10.0 Hgb 16.3 Hct 46.2 Plt Count 357 Sodium 135 L Potassium 3.8 Chloride 106 Carbon Dioxide 22 L BUN 15 Creatinine 0.77 Glucose 103 Calcium 9.1 Troponin I 0.22 H* Short CBC 10/09/17 Range/Units 19:24 WBC 10.0 (4.3-11.1) K/mcL Hgb 16.3 (12.9-16.9) g/dL Hct 46.2 (37.5-50.1) % Plt Count 357 (140-400) K/mcL Neutrophils # 7.8 (1.6-8.9) K/mcL BMP 10/09/17 Range/Units 19:24 Sodium 135 L (136-145) mEq/L Potassium 3.8 (3.5-5.1) mEq/L Chloride 106 (98-107) mEq/L Carbon Dioxide 22 L (23-29) mEq/L BUN 15 (6-20) mg/dL Creatinine 0.77 (0.70-1.30) mg/dL Glucose 103 (70-105) mg/dL Calcium 9.1 (8.6-10.3) mg/dL Cardiac Enzymes 10/09/17 Range/Units 19:24 Troponin I 0.22 H* (< 0.04) ng/mL Impressions Echocardiogram 10/09/17 01:35 Impressions: LVEF 55%. Normal LV systolic function with normal wall motion. Indeterminate diastolic function. Mild concentric left ventricular hypertrophy. Normal right ventricular structure and function. Mild mitral regurgitation. Aortic valve leaflet morphology not well visualized. Mild-moderate aortic regurgitation. No pulmonary hypertension. Left Ventricular Wall Motion: Rest Echo Findings All wall segments showed normal motion. Findings: Study Quality * Technically adequate exam. ECG Findings * Normal sinus rhythm. Left Ventricle * LVEF 55%. * Indeterminate diastolic function. * Normal LV chamber size. * Mild concentric left ventricular hypertrophy. Right Ventricle * Normal right ventricular structure and function. Left Atrium * Mild-moderately dilated left atrium. Right Atrium * Normal right atrial size. Mitral Valve * Normal mitral valve structure. * No mitral stenosis. * Mild mitral regurgitation. Aortic Valve * Aortic valve leaflet morphology not well visualized. * Mildly calcified aortic valve leaflets. * Mild-moderate aortic regurgitation. Tricuspid Valve * Normal tricuspid valve structure. * Trace tricuspid regurgitation. * Estimated RA pressure is 3 mmHg. Pulmonic Valve * Pulmonic valve is not well visualized. * No pulmonic stenosis. * No pulmonic regurgitation. Pulmonary Artery * Pulmonary artery not well visualized. Aorta * Normally sized aortic root. Pericardium * There is no pericardial effusion present. Interatrial Septum * No evidence of PFO by color Doppler. IVC * Normal IVC dimensions and inspiratory collapse. Active Medications Hydrocodone Bitart/Acetaminophen ([place] 5-325 Mg) 1.5 tab PO Q6HR PRN PRN Reason: Pain Stop: 04/10/18 10:05 Last Admin: 10/10/17 08:20 Dose: 1.5 tab Albuterol Sulfate (Albuterol Inhaler) 2 puff IH Q4H PRN PRN Reason: Shortness Of Breath Stop: 04/10/18 15:02 Aspirin (Aspirin) 81 mg PO DAILY [facility] Stop: 04/10/18 09:01 Last Admin: 10/09/17 08:58 Dose: 81 mg Budesonide/Formoterol Fumarate (Symbicort) 2 puff IH BIDR [facility] PRN Reason: Protocol Stop: 04/10/18 15:01 Last Admin: 10/10/17 07:43 Dose: 2 puff Budesonide/Formoterol Fumarate (Symbicort) 2 puff IH BIDR [facility] PRN Reason: Protocol Stop: 04/10/18 15:16 Last Admin: 10/10/17 07:45 Dose: Not Given Carvedilol (Coreg) 3.125 mg PO BIDWM [facility] Stop: 04/10/18 08:01 Last Admin: 10/10/17 08:18 Dose: 3.125 mg Diclofenac Sodium (Voltaren) 75 mg PO BID [facility] Stop: 04/10/18 21:01 Last Admin: 10/10/17 08:19 Dose: 75 mg Heparin Sodium (Porcine) (Heparin) 5,000 unit SQ Q12HCO [facility] Stop: 04/10/18 11:46 Last Admin: 10/10/17 06:13 Dose: 5,000 unit Sodium Chloride (0.9 % Sodium Chloride) 1,000 mls @ 100 mls/hr IVC .Q10H [facility] Stop: 04/10/18 01:46 Last Admin: 10/10/17 08:08 Dose: 100 mls/hr Lisinopril (Zestril) 5 mg PO DAILY [facility] PRN Reason: Protocol Stop: 04/10/18 10:16 Last Admin: 10/10/17 08:19 Dose: 5 mg Nicotine (Nicoderm) 21 mg TD DAILY [facility] PRN Reason: Protocol Stop: 04/10/18 15:01 Last Admin: 10/10/17 08:18 Dose: 21 mg Ondansetron HCl (Zofran) 4 mg IVP Q6HR PRN; Protocol PRN Reason: Nausea Stop: 04/10/18 20:18 Last Admin: 10/09/17 20:42 Dose: 4 mg Pregabalin (Lyrica) 150 mg PO BID [facility] Stop: 04/10/18 21:01 Last Admin: 10/09/17 21:43 Dose: 150 mg Rosuvastatin Calcium (Crestor) 40 mg PO HS [facility] Stop: 04/10/18 21:01 Last Admin: 10/09/17 21:43 Dose: 40 mg Ticagrelor (Brilinta) 90 mg PO BID [facility] Stop: 04/10/18 09:01 Last Admin: 10/10/17 08:20 Dose: 90 mg Trazodone HCl (Trazodone) 200 mg PO HS [facility] Stop: 04/10/18 21:01 Last Admin: 10/09/17 21:43 Dose: 200 mg Venlafaxine HCl (Effexor Xr) 75 mg PO DAILY [facility] Stop: 04/10/18 15:16 Last Admin: 10/10/17 08:18 Dose: 75 mg - Imaging and Cardiology Echo: report reviewed Cardiac cath: report reviewed - EKG Interpretation EKG results cardiology: other (12 hr tele AVG HR 84, SR, no significant pauses or arrhythmias) Consult Discharge Plan - Plan Additional Instructions: RISK FACTORS: STOP SMOKING: If you smoke, STOP. Smoking or tobacco use significantly increases your risk of heart disease because nicotine causes the arteries to narrow or constrict. It also causes fats to stick to the artery. Your chances of having a heart attack are greatly increased if you continue to smoke. For more information, call the education line for smoking cessation 1-661-JDLZCHP EAT A LOW FAT/CHOLESTEROL/SODIUM DIET: This diet may help reduce your chances of having a heart attack. LIFTING: Avoid lifting anything more than 10 pounds for 5-7 days Prior to straining, laughing, sneezing and/or coughing, apply manual pressure directly over insertion site. ACTIVITY: You may walk or climb stairs as tolerated You can resume sexual activity as tolerated In general, you are encouraged to engage in a minimum of 30 minutes or more of moderate intensity physical activity, such as brisk walking, daily or at least 3 -4 times weekly BATHING Do not submerge the site into water (bath tub, hot tub, swimming pool) for 1 week. This can be a source for infection into the blood stream. You may shower after 24 hours SITE CARE: After 24 hours, you may remove the dressing and leave the site open to air. Keep the site clean and dry. Clean gently and pat dry. You can expect bruising and tenderness that gradually resolve within a week or two. Return to work as instructed per your physician Resume driving as instructed per physician Keep all scheduled follow up appointments Resume medications as instructed IMPORTANT: If prescribed a Platelet Aggregation Inhibitor such as, Plavix, Brilinta or Effient: Duration of therapy is minimum one year These medications are often used in combination with Aspirin in prevention of future heart attacks Never discontinue unless consult with your Fisheries Technical Officer STROKE (CVA) Risk factors for a stroke are: Age, cigarette smoking, diabetes, excessive alcohol consumption, family history, high blood pressure, overweight, physical inactivity, prior stroke, heart attack, diagnosis of carotid artery stenosis or other artery disease. Warning signs: Sudden numbness or weakness of the face, arm or leg; especially on one side of the body, sudden confusion, trouble speaking or understanding, sudden trouble seeing in one or both eyes, sudden trouble walking, dizziness, loss of balance or coordination, sudden severe headache with no cause. Call 911 or go to the Emergency Room. CONGESTIVE HEART FAILURE: If you have been diagnosed with Congestive Heart Failure (CHF) and your symptoms return, make an appointment with your physician Weigh yourself daily. Notify your physician if you have a weight gain of two or more pounds in one day or five or more pounds in one week. If you experience any difficulty breathing, please call 911 BLEEDING: Although the risk of bleeding is minimal, it can happen. If you have any bleeding from the site, apply firm pressure above the puncture site for 10-15 minutes. If the bleeding does not stop, continue manual pressure and call 911 Contact your physician if: You develop a fever greater than 101 degrees Fahrenheit Your site becomes reddened or has any drainage You have an increase in pain or burning at the site or if a large knot forms at the site. If you experience chest pain, shortness of breath, dizziness, or extreme tiredness, stop the activity and rest. Please notify your physicians office if you experience any of these symptoms and they are not relieved by rest please call 911! Referrals: Sandra Bell MD [Primary Care Provider] -
[2017-10-10] MEDS ORDERED: Saliva Stimulant 100ml BOTTLE PO PRN (10:01)
--- NOTE | 2017-10-10 10:09 | Internal Med Progress Note ---
<Jass Golden - Last Filed: 10/10/17 16:29> Date of Encounter: 10/10/17 Time of Encounter: 09:15 - Assessment and plan (1) STEMI (ST elevation myocardial infarction) Current Visit: Yes Status: Acute Assessment and plan: - Status post emergent LHC with KEDAR to mRCA on 10/09/17 - TTE on 10/09/17 showed LVEF 55%. Mild concentric LV hypertrophy. Normal right ventricular structure and function. Mild mitral regurgitation. Aortic valve leaflet morphology not well visualized. Mild-moderate aortic regurgitation. No pulmonary hypertension. - Chest pain resolved since. - Cardiology recommends inpatient monitoring for another 24 hours before discharging home with aspirin and Plavix. Patient will need outpatient cardiology follow-up in a week. Qualifiers: Involved coronary artery: right coronary artery Qualified Code(s): I21.11 - ST elevation (STEMI) myocardial infarction involving right coronary artery (2) Alcohol abuse Current Visit: Yes Status: Acute Assessment and plan: - Patient reports last alcohol use was on 10/08/17 night and denies known history of alcohol withdrawal. - Continue close monitoring with CIWA protocol. (3) Essential hypertension Current Visit: Yes Status: Acute Assessment and plan: - Blood pressure within normal range. - Continue current antihypertensive regimen. (4) Squamous cell carcinoma Current Visit: No Status: Chronic Assessment and plan: - Stage IIIB (T2bN2) squamous cell carcinoma left upper lobe of the lung. - Status post chemoradiation with Carbo/Taxol 03/11/17-04/22/17. Currently on Durvalumab therapy since 05/26/17. (5) Hepatitis C Current Visit: No Status: Chronic Assessment and plan: - In remission after treatement with Harvoni. Qualifiers: Viral hepatitis chronicity: chronic Hepatic coma status: without hepatic coma Qualified Code(s): B18.2 - Chronic viral hepatitis C (6) COPD (chronic obstructive pulmonary disease) Current Visit: Yes Status: Chronic Assessment and plan: - Continue bronchodilators and supplemental oxygen. Qualifiers: COPD type: unspecified COPD Qualified Code(s): J44.9 - Chronic obstructive pulmonary disease, unspecified (7) Tobacco abuse Current Visit: Yes Status: Chronic Assessment and plan: - Continue nicotine patch. (8) DVT prophylaxis Current Visit: Yes Status: Acute Assessment and plan: - SQ heparin. - Subjective Interval history: Patient was seen and examined this morning. Patient still has some lightheadedness but otherwise feeling well. Patient denies chest pain/pressure, shortness of breath, palpitation, diaphoresis, abdominal pain, nausea, vomiting , diarrhea, fever, chills. - Constitutional Vitals: Temp Pulse Resp BP Pulse Ox 98.1 F 77 16 120/64 94 10/10/17 06:28 10/10/17 06:28 10/10/17 07:45 10/10/17 06:28 10/10/17 07:45 General appearance: Present: cooperative, A&O X 3, pleasant, no acute distress - Head Head exam: Present: normal inspection - Eye Eye exam: Present: EOMI - Neck Neck exam general surgery: Present: normal inspection, trachea midline - Respiratory Respiratory exam: Present: CTAB - Cardiovascular Cardiovascular exam: Present: RRR, +S1, +S2 - GI/Abdominal GI/Abdominal exam: Present: normal bowel sounds, soft. Absent: tenderness - Extremities Exam Extremities exam: Absent: cyanotic, pedal edema - Neurological Exam Neurological exam: Present: alert, no focal deficits. Absent: facial droop, speech deficit - Skin Skin exam: Present: dry, warm Internal Medicine: Result - Labs CBC & Chem 7: 10/09/17 19:24 10/09/17 19:24 Labs: Short CBC 10/09/17 Range/Units 19:24 WBC 10.0 (4.3-11.1) K/mcL Hgb 16.3 (12.9-16.9) g/dL Hct 46.2 (37.5-50.1) % Plt Count 357 (140-400) K/mcL Neutrophils # 7.8 (1.6-8.9) K/mcL BMP 10/09/17 19:24 Sodium 135 L Potassium 3.8 Chloride 106 Carbon Dioxide 22 L BUN 15 Creatinine 0.77 Glucose 103 Calcium 9.1 Cardiac Enzymes 10/09/17 Range/Units 19:24 Troponin I 0.22 H* (< 0.04) ng/mL - ABG Interpretation ABG results: PT/INR, D-dimer PT 11.1 Seconds (9.4-12.1) 10/09/17 02:27 - Impressions Impressions Echocardiogram 10/09/17 01:35 Impressions: LVEF 55%. Normal LV systolic function with normal wall motion. Indeterminate diastolic function. Mild concentric left ventricular hypertrophy. Normal right ventricular structure and function. Mild mitral regurgitation. Aortic valve leaflet morphology not well visualized. Mild-moderate aortic regurgitation. No pulmonary hypertension. Left Ventricular Wall Motion: Rest Echo Findings All wall segments showed normal motion. Findings: Study Quality * Technically adequate exam. ECG Findings * Normal sinus rhythm. Left Ventricle * LVEF 55%. * Indeterminate diastolic function. * Normal LV chamber size. * Mild concentric left ventricular hypertrophy. Right Ventricle * Normal right ventricular structure and function. Left Atrium * Mild-moderately dilated left atrium. Right Atrium * Normal right atrial size. Mitral Valve * Normal mitral valve structure. * No mitral stenosis. * Mild mitral regurgitation. Aortic Valve * Aortic valve leaflet morphology not well visualized. * Mildly calcified aortic valve leaflets. * Mild-moderate aortic regurgitation. Tricuspid Valve * Normal tricuspid valve structure. * Trace tricuspid regurgitation. * Estimated RA pressure is 3 mmHg. Pulmonic Valve * Pulmonic valve is not well visualized. * No pulmonic stenosis. * No pulmonic regurgitation. Pulmonary Artery * Pulmonary artery not well visualized. Aorta * Normally sized aortic root. Pericardium * There is no pericardial effusion present. Interatrial Septum * No evidence of PFO by color Doppler. IVC * Normal IVC dimensions and inspiratory collapse. Consult Discharge Plan - Plan Instructions: Ticagrelor (By mouth), Myocardial Infarction (DC), Viral Hepatitis C (DC), Chronic Obstructive Pulmonary Disease (DC), Chronic Hypertension (DC), Fall Prevention (DC), Cigarette Smoking and Your Health, Lining Maker (GEN), Viral Hepatitis C, Lining Maker (GEN) Additional Instructions: RISK FACTORS: STOP SMOKING: If you smoke, STOP. Smoking or tobacco use significantly increases your risk of heart disease because nicotine causes the arteries to narrow or constrict. It also causes fats to stick to the artery. Your chances of having a heart attack are greatly increased if you continue to smoke. For more information, call the education line for smoking cessation 4-964-VDMWJOZ EAT A LOW FAT/CHOLESTEROL/SODIUM DIET: This diet may help reduce your chances of having a heart attack. LIFTING: Avoid lifting anything more than 10 pounds for 5-7 days Prior to straining, laughing, sneezing and/or coughing, apply manual pressure directly over insertion site. ACTIVITY: You may walk or climb stairs as tolerated You can resume sexual activity as tolerated In general, you are encouraged to engage in a minimum of 30 minutes or more of moderate intensity physical activity, such as brisk walking, daily or at least 3 -4 times weekly BATHING Do not submerge the site into water (bath tub, hot tub, swimming pool) for 1 week. This can be a source for infection into the blood stream. You may shower after 24 hours SITE CARE: After 24 hours, you may remove the dressing and leave the site open to air. Keep the site clean and dry. Clean gently and pat dry. You can expect bruising and tenderness that gradually resolve within a week or two. Return to work as instructed per your physician Resume driving as instructed per physician Keep all scheduled follow up appointments Resume medications as instructed IMPORTANT: If prescribed a Platelet Aggregation Inhibitor such as, Plavix, Brilinta or Effient: Duration of therapy is minimum one year These medications are often used in combination with Aspirin in prevention of future heart attacks Never discontinue unless consult with your Thermal Molder STROKE (CVA) Risk factors for a stroke are: Age, cigarette smoking, diabetes, excessive alcohol consumption, family history, high blood pressure, overweight, physical inactivity, prior stroke, heart attack, diagnosis of carotid artery stenosis or other artery disease. Warning signs: Sudden numbness or weakness of the face, arm or leg; especially on one side of the body, sudden confusion, trouble speaking or understanding, sudden trouble seeing in one or both eyes, sudden trouble walking, dizziness, loss of balance or coordination, sudden severe headache with no cause. Call 911 or go to the Emergency Room. CONGESTIVE HEART FAILURE: If you have been diagnosed with Congestive Heart Failure (CHF) and your symptoms return, make an appointment with your physician Weigh yourself daily. Notify your physician if you have a weight gain of two or more pounds in one day or five or more pounds in one week. If you experience any difficulty breathing, please call 911 BLEEDING: Although the risk of bleeding is minimal, it can happen. If you have any bleeding from the site, apply firm pressure above the puncture site for 10-15 minutes. If the bleeding does not stop, continue manual pressure and call 911 Contact your physician if: You develop a fever greater than 101 degrees Fahrenheit Your site becomes reddened or has any drainage You have an increase in pain or burning at the site or if a large knot forms at the site. If you experience chest pain, shortness of breath, dizziness, or extreme tiredness, stop the activity and rest. Please notify your physicians office if you experience any of these symptoms and they are not relieved by rest please call 911! Referrals: Sandra Bell MD [Primary Care Provider] - Prescriptions: Ticagrelor [Brilinta] 90 mg PO BID #30 tablet <Rik Flores - Last Filed: 10/10/17 17:52> Date of Encounter: 10/10/17 - Assessment and plan (1) STEMI (ST elevation myocardial infarction) Current Visit: Yes Status: Acute Qualifiers: Involved coronary artery: right coronary artery Qualified Code(s): I21.11 - ST elevation (STEMI) myocardial infarction involving right coronary artery (2) Alcohol abuse Current Visit: Yes Status: Chronic (3) Essential hypertension Current Visit: Yes Status: Acute (4) COPD (chronic obstructive pulmonary disease) Current Visit: Yes Status: Chronic Qualifiers: COPD type: unspecified COPD Qualified Code(s): J44.9 - Chronic obstructive pulmonary disease, unspecified (5) Tobacco abuse Current Visit: Yes Status: Chronic (6) Hepatitis C Current Visit: No Status: Chronic Qualifiers: Viral hepatitis chronicity: chronic Hepatic coma status: without hepatic coma Qualified Code(s): B18.2 - Chronic viral hepatitis C (7) Squamous cell lung cancer Current Visit: Yes Status: Acute Qualifiers: Laterality: unspecified laterality Qualified Code(s): C34.90 - Malignant neoplasm of unspecified part of unspecified bronchus or lung - Constitutional Vitals: Temp Pulse Resp BP Pulse Ox 97.8 F 80 18 148/88 94 10/10/17 15:44 10/10/17 15:44 10/10/17 15:44 10/10/17 15:44 10/10/17 15:44 Internal Medicine: Result - Labs CBC & Chem 7: 10/09/17 19:24 10/09/17 19:24 Labs: Short CBC 10/09/17 Range/Units 19:24 WBC 10.0 (4.3-11.1) K/mcL Hgb 16.3 (12.9-16.9) g/dL Hct 46.2 (37.5-50.1) % Plt Count 357 (140-400) K/mcL Neutrophils # 7.8 (1.6-8.9) K/mcL BMP 10/09/17 19:24 Sodium 135 L Potassium 3.8 Chloride 106 Carbon Dioxide 22 L BUN 15 Creatinine 0.77 Glucose 103 Calcium 9.1 Cardiac Enzymes 10/09/17 Range/Units 19:24 Troponin I 0.22 H* (< 0.04) ng/mL - ABG Interpretation ABG results: PT/INR, D-dimer PT 11.1 Seconds (9.4-12.1) 10/09/17 02:27 - Attending Attestation I examined this patient and my medical decision-making was reviewed with the Resident Physician on 10/10/17. I agree with the documented findings, disposition and treatment plan as described except to the extent set forth below. Mr Preciado is currently admitted for acute STEMI. He remains moderate to high risk due to potential for worsening clinical status. Mr Preciado is doing OK. No fever or chills. No CP. No shakes. Exam Alert Comfortable Mucus membranes dry No tachycardia No wheeze I/P 1. Acute STEMI 2. Chronic ETOH abuse Further diagnoses and plan as above.
--- NOTE | 2017-10-10 11:54 | Event Note ---
Date of Encounter: 10/10/17 Time of Encounter: 11:53 - Cardiology Event Note [facility] is [facility], Brilinta not [facility]. Will give dose of Brilinta this evening and switch to Plavix starting tomorrow. Load with Plavix 300mg once tomorrow, then 75mg daily. Please provide Plavix rx at discharge.
--- NOTE | 2017-10-10 12:11 | Electrocardiograph Report ---
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
[2017-10-10] MEDS: Aspirin 81 MG TAB.CHEW PO SCH (12:21)
--- NOTE | 2017-10-10 13:05 | Electrocardiograph Report ---
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
--- NOTE | 2017-10-10 13:07 | Electrocardiograph Report ---
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
--- NOTE | 2017-10-10 13:12 | Electrocardiograph Report ---
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
[2017-10-10] MEDS: traZODone 50 MG TABLET PO SCH (21:49)
[2017-10-11] MEDS: *HR* HYDROcodone/Acet 5/325 mg TABLET PO PRN ×4 (03:39→22:09)
[2017-10-11] MEDS: 0.9 % Sodium Chloride 1,000 ML IVC SCH ×2 (03:45→19:42)
[2017-10-11 05:14] LABS: BUN/Creatinine Ratio 15 (6-26); Blood Urea Nitrogen 10 mg/dL (6-20); Calcium 8.5 mg/dL (8.6-10.3); Carbon Dioxide 23 mEq/L (23-29); Chloride 109 mEq/L (98-107); Glucose 103 mg/dL (70-105); Osmolality,Calculated 283 (280-300); Potassium 3.7 mEq/L (3.5-5.1); Sodium 137 mEq/L (136-145); eGFR For African Americans > 60 (> 60); eGFR For Non-African Americans > 60 (> 60)
[2017-10-11] MEDS: *HR* Heparin 5,000 UNIT/ML VIAL SQ SCH ×2 (05:29→16:10)
[2017-10-11] MEDS: Budesonide/Formoterol 160/4.5 MDI IH SCH ×4 (07:33→20:14)
[2017-10-11] MEDS: Nicotine 21 MG PATCH.TD24 TD SCH (09:47)
[2017-10-11] MEDS: Aspirin 81 MG TAB.CHEW PO SCH (09:47)
[2017-10-11] MEDS: Pregabalin 75 MG CAPSULE PO SCH ×2 (09:48→22:09)
[2017-10-11] MEDS: Venlafaxine XR (24 HR) 75 MG CAP.ER.24H PO SCH (09:48)
[2017-10-11] MEDS: Diclofenac Sodium 75 MG TABLET PO SCH ×2 (09:48→22:09)
--- NOTE | 2017-10-11 11:20 | Internal Med Progress Note ---
<Jass Golden - Last Filed: 10/11/17 16:21> Date of Encounter: 10/11/17 Time of Encounter: 11:00 - Assessment and plan (1) STEMI (ST elevation myocardial infarction) Current Visit: Yes Status: Acute Assessment and plan: - Status post emergent LHC with KEDAR to mRCA on 10/09/17 - TTE on 10/09/17 showed LVEF 55%. Mild concentric LV hypertrophy. Normal right ventricular structure and function. Mild mitral regurgitation. Aortic valve leaflet morphology not well visualized. Mild-moderate aortic regurgitation. No pulmonary hypertension. - Chest pain resolved since. - Continue aspirin and Plavix. - Patient will need outpatient cardiology follow-up in a week. Qualifiers: Involved coronary artery: right coronary artery Qualified Code(s): I21.11 - ST elevation (STEMI) myocardial infarction involving right coronary artery (2) Alcohol abuse Current Visit: Yes Status: Chronic Assessment and plan: - Patient reports last alcohol use was on 10/08/17 night and denies known history of alcohol withdrawal. - Continue close monitoring with CIWA protocol. (3) Fall Current Visit: Yes Status: Acute Assessment and plan: - Patient had fall at home that leaded to his ED visit. - Fall precaution - Will consult PT/OT for evaluation before discharge. Qualifiers: Encounter type: initial encounter Qualified Code(s): W19.XXXA - Unspecified fall, initial encounter (4) Orthostatic hypotension Current Visit: Yes Status: Suspected Assessment and plan: - Orthostatic vital signs showed diastolic blood pressure dropped more than 10 mmHg from lying to sitting to standing. - Patient was educated about staying well-hydrated and taking extra time when getting up. (5) Essential hypertension Current Visit: Yes Status: Acute Assessment and plan: - Blood pressure within normal range. - Continue current antihypertensive regimen. (6) Squamous cell carcinoma Current Visit: No Status: Chronic Assessment and plan: - Stage IIIB (T2bN2) squamous cell carcinoma left upper lobe of the lung. - Status post chemoradiation with Carbo/Taxol 03/11/17-04/22/17. Currently on Durvalumab therapy since 05/26/17. (7) Hepatitis C Current Visit: No Status: Chronic Assessment and plan: - In remission after treatement with Harvoni. Qualifiers: Viral hepatitis chronicity: chronic Hepatic coma status: without hepatic coma Qualified Code(s): B18.2 - Chronic viral hepatitis C (8) COPD (chronic obstructive pulmonary disease) Current Visit: Yes Status: Chronic Assessment and plan: - Continue bronchodilators and supplemental oxygen. Qualifiers: COPD type: unspecified COPD Qualified Code(s): J44.9 - Chronic obstructive pulmonary disease, unspecified (9) Tobacco abuse Current Visit: Yes Status: Chronic Assessment and plan: - Smoking cessation counseling. Patient states he will try to quit smoking after discharge. - Continue nicotine patch. (10) DVT prophylaxis Current Visit: Yes Status: Acute Assessment and plan: - Continue SQ heparin. - Subjective Interval history: Patient was seen and examined this morning. Patient still complains of some lightheadedness but denies chest pain/pressure, shortness of breath, palpitation , diaphoresis, abdominal pain, nausea, vomiting, diarrhea, fever, chills. - Constitutional Vitals: Temp Pulse Resp BP Pulse Ox 97.3 F L 83 18 156/103 92 10/11/17 06:32 10/11/17 10:31 10/11/17 07:33 10/11/17 10:31 10/11/17 07:33 General appearance: Present: cooperative, A&O X 3, no acute distress, answers questions appropriately - Head Head exam: Present: normal inspection - Eye Eye exam: Present: EOMI - Neck Neck exam general surgery: Present: normal inspection, trachea midline - Respiratory Respiratory exam: Present: CTAB - Cardiovascular Cardiovascular exam: Present: RRR, +S1, +S2 - GI/Abdominal GI/Abdominal exam: Present: normal bowel sounds, soft. Absent: tenderness - Extremities Exam Extremities exam: Absent: cyanotic, pedal edema - Neurological Exam Neurological exam: Present: alert, no focal deficits. Absent: facial droop, speech deficit - Skin Skin exam: Present: dry, warm Internal Medicine: Result - Labs CBC & Chem 7: 10/09/17 19:24 10/11/17 04:19 Labs: BMP 10/11/17 04:19 Sodium 137 Potassium 3.7 Chloride 109 H Carbon Dioxide 23 BUN 10 Creatinine 0.65 L Glucose 103 Calcium 8.5 L - ABG Interpretation ABG results: PT/INR, D-dimer PT 11.1 Seconds (9.4-12.1) 10/09/17 02:27 Consult Discharge Plan - Plan Instructions: Ticagrelor (By mouth), Myocardial Infarction (DC), Viral Hepatitis C (DC), Chronic Obstructive Pulmonary Disease (DC), Chronic Hypertension (DC), Fall Prevention (DC), Cigarette Smoking and Your Health, Electrical Controls Engineer (GEN), Viral Hepatitis C, Electrical Controls Engineer (GEN) Additional Instructions: RISK FACTORS: STOP SMOKING: If you smoke, STOP. Smoking or tobacco use significantly increases your risk of heart disease because nicotine causes the arteries to narrow or constrict. It also causes fats to stick to the artery. Your chances of having a heart attack are greatly increased if you continue to smoke. For more information, call the education line for smoking cessation 2-883-NQTBTYO EAT A LOW FAT/CHOLESTEROL/SODIUM DIET: This diet may help reduce your chances of having a heart attack. LIFTING: Avoid lifting anything more than 10 pounds for 5-7 days Prior to straining, laughing, sneezing and/or coughing, apply manual pressure directly over insertion site. ACTIVITY: You may walk or climb stairs as tolerated You can resume sexual activity as tolerated In general, you are encouraged to engage in a minimum of 30 minutes or more of moderate intensity physical activity, such as brisk walking, daily or at least 3 -4 times weekly BATHING Do not submerge the site into water (bath tub, hot tub, swimming pool) for 1 week. This can be a source for infection into the blood stream. You may shower after 24 hours SITE CARE: After 24 hours, you may remove the dressing and leave the site open to air. Keep the site clean and dry. Clean gently and pat dry. You can expect bruising and tenderness that gradually resolve within a week or two. Return to work as instructed per your physician Resume driving as instructed per physician Keep all scheduled follow up appointments Resume medications as instructed IMPORTANT: If prescribed a Platelet Aggregation Inhibitor such as, Plavix, Brilinta or Effient: Duration of therapy is minimum one year These medications are often used in combination with Aspirin in prevention of future heart attacks Never discontinue unless consult with your Manager Heart STROKE (CVA) Risk factors for a stroke are: Age, cigarette smoking, diabetes, excessive alcohol consumption, family history, high blood pressure, overweight, physical inactivity, prior stroke, heart attack, diagnosis of carotid artery stenosis or other artery disease. Warning signs: Sudden numbness or weakness of the face, arm or leg; especially on one side of the body, sudden confusion, trouble speaking or understanding, sudden trouble seeing in one or both eyes, sudden trouble walking, dizziness, loss of balance or coordination, sudden severe headache with no cause. Call 911 or go to the Emergency Room. CONGESTIVE HEART FAILURE: If you have been diagnosed with Congestive Heart Failure (CHF) and your symptoms return, make an appointment with your physician Weigh yourself daily. Notify your physician if you have a weight gain of two or more pounds in one day or five or more pounds in one week. If you experience any difficulty breathing, please call 911 BLEEDING: Although the risk of bleeding is minimal, it can happen. If you have any bleeding from the site, apply firm pressure above the puncture site for 10-15 minutes. If the bleeding does not stop, continue manual pressure and call 911 Contact your physician if: You develop a fever greater than 101 degrees Fahrenheit Your site becomes reddened or has any drainage You have an increase in pain or burning at the site or if a large knot forms at the site. If you experience chest pain, shortness of breath, dizziness, or extreme tiredness, stop the activity and rest. Please notify your physicians office if you experience any of these symptoms and they are not relieved by rest please call 911! Referrals: Sandra Bell MD [Primary Care Provider] - Prescriptions: Ticagrelor [Brilinta] 90 mg PO BID #30 tablet <Rik Flores - Last Filed: 10/11/17 17:59> Date of Encounter: 10/11/17 - Assessment and plan (1) STEMI (ST elevation myocardial infarction) Current Visit: Yes Status: Acute Qualifiers: Involved coronary artery: right coronary artery Qualified Code(s): I21.11 - ST elevation (STEMI) myocardial infarction involving right coronary artery (2) Alcohol abuse Current Visit: Yes Status: Chronic (3) Fall Current Visit: Yes Status: Acute Qualifiers: Encounter type: subsequent encounter Qualified Code(s): W19.XXXD - Unspecified fall, subsequent encounter (4) Essential hypertension Current Visit: Yes Status: Acute (5) COPD (chronic obstructive pulmonary disease) Current Visit: Yes Status: Chronic Qualifiers: COPD type: unspecified COPD Qualified Code(s): J44.9 - Chronic obstructive pulmonary disease, unspecified (6) Tobacco abuse Current Visit: Yes Status: Chronic (7) Hepatitis C Current Visit: No Status: Chronic Qualifiers: Viral hepatitis chronicity: chronic Hepatic coma status: without hepatic coma Qualified Code(s): B18.2 - Chronic viral hepatitis C (8) Squamous cell lung cancer Current Visit: Yes Status: Acute Qualifiers: Laterality: unspecified laterality Qualified Code(s): C34.90 - Malignant neoplasm of unspecified part of unspecified bronchus or lung - Constitutional Vitals: Temp Pulse Resp BP Pulse Ox 98.1 F 81 18 150/95 93 10/11/17 15:23 10/11/17 15:23 10/11/17 15:23 10/11/17 15:23 10/11/17 15:23 Internal Medicine: Result - Labs CBC & Chem 7: 10/09/17 19:24 10/11/17 04:19 Labs: BMP 10/11/17 04:19 Sodium 137 Potassium 3.7 Chloride 109 H Carbon Dioxide 23 BUN 10 Creatinine 0.65 L Glucose 103 Calcium 8.5 L - ABG Interpretation ABG results: PT/INR, D-dimer PT 11.1 Seconds (9.4-12.1) 10/09/17 02:27 - Attending Attestation I examined this patient and my medical decision-making was reviewed with the Resident Physician on 10/11/17. I agree with the documented findings, disposition and treatment plan as described except to the extent set forth below. Mr Preciado is currently admitted for acute STEMI. He has had multiple falls and is unsteady. He remains moderate to high risk due to potential for worsening clinical status. Mr Preciado is doing OK. His is concerned because he has had falls. He feels unsteady on his feet. No fever or chills. No chest pain. Exam alert Comfortable Mucus membranes dry Heart reg No wheeze abd soft No tremor I/P 1. STEMI 2. Falls Further diagnoses and plan as above PT/OT evals. Anticipate d/c tomorrow.
[2017-10-11] MEDS: traZODone 50 MG TABLET PO SCH (22:09)
[2017-10-12] MEDS: 0.9 % Sodium Chloride 1,000 ML IVC SCH (05:29)
[2017-10-12] MEDS: *HR* HYDROcodone/Acet 5/325 mg TABLET PO PRN (05:29)
[2017-10-12] MEDS: *HR* Heparin 5,000 UNIT/ML VIAL SQ SCH (05:30)
[2017-10-12 06:42] VITALS: BP 130/83
[2017-10-12] MEDS: Budesonide/Formoterol 160/4.5 MDI IH SCH ×2 (07:45→07:47)
--- NOTE | 2017-10-12 09:11 | Discharge Summary ---
<Jass Golden - Last Filed: 10/12/17 14:41> Orders not resulted at time of discharge: Pending orders 10/09/17 18:52 EKG [ECG 12 lead ECG] [ECG] Stat 10/10/17 07:00 ECG 12 lead ECG [ECG] Routine Date of Encounter: 10/12/17 Time of Encounter: 08:00 - Discharge Diagnosis (1) STEMI (ST elevation myocardial infarction) Priority: Primary Status: Acute Qualifiers: Involved coronary artery: right coronary artery Qualified Code(s): I21.11 - ST elevation (STEMI) myocardial infarction involving right coronary artery (2) Alcohol abuse Priority: Secondary Status: Chronic (3) Fall Priority: Secondary Status: Acute Qualifiers: Encounter type: subsequent encounter Qualified Code(s): W19.XXXD - Unspecified fall, subsequent encounter (4) Orthostatic hypotension Priority: Secondary Status: Suspected (5) Essential hypertension Priority: Secondary Status: Acute (6) Squamous cell carcinoma Priority: Secondary Status: Chronic (7) Hepatitis C Priority: Secondary Status: Chronic Qualifiers: Viral hepatitis chronicity: chronic Hepatic coma status: without hepatic coma Qualified Code(s): B18.2 - Chronic viral hepatitis C (8) COPD (chronic obstructive pulmonary disease) Priority: Secondary Status: Chronic Qualifiers: COPD type: unspecified COPD Qualified Code(s): J44.9 - Chronic obstructive pulmonary disease, unspecified Hospital course: Mr. Preciado is a 57 year old male with PMH of HTN, HLD, hepatitis C on remission and squamous cell lung cancer s/p chemoradiation currently on immunotherapy. Patient presented to [facility] ED with complaint of syncope and fall. CT head found no acute intracranial abnormality. EKG showed mild ST elevation in inferior leads with troponin elevation (0.15 then 0.22). Patient was admitted on 10/09/17 for STEMI and had emergent LHC with [facility] to [facility]. Patient was started on aspirin and Brilinta but was later switched to Plavix. PT/OT recommends home health PT/OT. Given patient improves clinically and remains chest pain-free and hemodynamically stable, patient can be discharged home with home health PT/OT. Patient was instructed to take newly prescribed aspirin, clopidogrel and carvedilol. Patient was reminded taht his simvastatin have been switched to stronger statin rosuvastatin and lisinopril have been decreased to 5 mg by mouth daily. Patient was encouraged to continue his effort to quit smoking and can use prescribed nicotine patch for assistance. [facility] a week and with [facility] in a week which the cardiology clinic will schedule an appointment with patient. Patient expressed his understanding and agreement with the discharge plan. All questions were answered. Discharge discussed with: patient - Time Spent with Patient Total time spent providing and/or coordinating discharge services: Greater than 30 minutes (40 minutes) - Discharge Medications Prescriptions: Carvedilol [Coreg] 3.125 mg PO BIDWM #30 tablet Clopidogrel [Plavix] 75 mg PO DAILY #30 tablet Lisinopril [Zestril] 5 mg PO DAILY #30 tablet Nicotine Patch [Nicoderm] 21 mg TD DAILY #30 patch.td24 Rosuvastatin [Crestor] 40 mg PO HS #30 tablet Home Medications: Budesonide/Formoterol 160/4.5 [Symbicort 160/4.5] 2 puff IH BIDR 02/11/17 [ History] Trazodone HCl 100 mg PO QPM 02/11/17 [History] Pregabalin [Lyrica] 150 mg PO BID 07/22/17 [History] Albuterol Sulfate [Proair Hfa] 2 puff IH Q4H PRN 10/09/17 [History] Aspirin Enteric Coated [Aspirin EC] 81 mg PO DAILY 10/09/17 [History] Diclofenac Sodium [Voltaren] 75 mg PO BID 10/09/17 [History] HYDROcodone/Acet 5/325 mg [[place] 5-325 mg] 1.5 tab PO Q6H PRN 10/09/17 [History] Venlafaxine XR (24 HR) [Effexor XR] 75 mg PO DAILY 10/09/17 [History] Carvedilol [Coreg] 3.125 mg PO BIDWM #30 tablet 10/12/17 [Rx] Clopidogrel [Plavix] 75 mg PO DAILY #30 tablet 10/12/17 [Rx] Lisinopril [Zestril] 5 mg PO DAILY #30 tablet 10/12/17 [Rx] Nicotine Patch [Nicoderm] 21 mg TD DAILY #30 patch.td24 10/12/17 [Rx] Rosuvastatin [Crestor] 40 mg PO HS #30 tablet 10/12/17 [Rx] Allergies/Adverse Reactions: 3 Allergy/AdvReac Type Severity Reaction Status Date / Time No Known Allergies Allergy Verified 10/08/17 23:51 Date of admission: 10/09/17 01:17 Primary care physician: Sandra Bell MD Consults: 10/09/17 01:35 Consult to Cardiac Rehabilitation-Phase1 [CONS] Routine Comment: Reason for Consult: AMI Call Completed: Yes Consult to Nurse Navigator [CONS] Routine Comment: 10/11/17 11:20 Consult to Physical Therapy [CONS] Routine Comment: Evaluate, develop and implement POC Reason for Consult: Fall at home. Discharge planning Does patient have active BEDREST order?: No Is patient medically & hemodynamically stable?: Yes OT [Consult to Occupational Therapy] [CONS] Routine Comment: Evaluate, develop and implement POC Reason for Consult: Fall at home. Discharge planning Does patient have active BEDREST order?: No Is patient medically & hemodynamically stable?: Yes Discharging clinician: Jass Golden Anticipated date of discharge: 10/12/17 - Constitutional Vitals: Temp Pulse Resp BP Pulse Ox 97.7 F 76 18 130/83 95 10/12/17 06:41 10/12/17 06:41 10/12/17 07:47 10/12/17 06:41 10/12/17 07:47 General appearance: Present: cooperative, A&O X 3, no acute distress, answers questions appropriately - Head Head exam: Present: normal inspection - Eye Eye exam: Present: EOMI - Neck Neck exam general surgery: Present: normal inspection, trachea midline - Respiratory Respiratory exam: Present: CTAB - Cardiovascular Cardiovascular exam: Present: RRR, +S1, +S2 - GI/Abdominal GI/Abdominal exam: Present: normal bowel sounds, soft. Absent: tenderness - Extremities Exam Extremities exam: Absent: cyanotic, pedal edema - Neurological Exam Neurological exam: Present: alert, no focal deficits. Absent: facial droop, speech deficit - Skin Skin exam: Present: dry, warm - Patient Status Disposition: Home Health Service Condition: Critical Functional capacity at discharge: independent ambulation Overall status at discharge: patient is progressing back to baseline - Discharge Instructions Instructions: Ticagrelor (By mouth), Myocardial Infarction (DC), Viral Hepatitis C (DC), Chronic Obstructive Pulmonary Disease (DC), Chronic Hypertension (DC), Fall Prevention (DC), Cigarette Smoking and Your Health, Radio Station Audio Engineer (GEN), Viral Hepatitis C, Radio Station Audio Engineer (GEN) Follow Up With: Sandra Bell MD [Primary Care Provider] - 10/20/17 10:45 am (With [place] PCP in a week) Additional Instructions: Please continue newly prescribed aspirin, clopidogrel and carvedilol. Please note your simvastatin have been switched to stronger statin rosuvastatin. Please also note your lisinopril have been decreased to 5 mg by mouth daily. Please continue your effort to quit smoking and you can use prescribed nicotine patch for assistance. Please follow up with your [place] primary care provider within a week. Please follow up with [facility] in a week. The cardiology clinic will schedule an appointment with you. RISK FACTORS: STOP SMOKING: If you smoke, STOP. Smoking or tobacco use significantly increases your risk of heart disease because nicotine causes the arteries to narrow or constrict. It also causes fats to stick to the artery. Your chances of having a heart attack are greatly increased if you continue to smoke. For more information, call the education line for smoking cessation 0-242-EITVWZN EAT A LOW FAT/CHOLESTEROL/SODIUM DIET: This diet may help reduce your chances of having a heart attack. LIFTING: Avoid lifting anything more than 10 pounds for 5-7 days Prior to straining, laughing, sneezing and/or coughing, apply manual pressure directly over insertion site. ACTIVITY: You may walk or climb stairs as tolerated You can resume sexual activity as tolerated In general, you are encouraged to engage in a minimum of 30 minutes or more of moderate intensity physical activity, such as brisk walking, daily or at least 3 -4 times weekly BATHING Do not submerge the site into water (bath tub, hot tub, swimming pool) for 1 week. This can be a source for infection into the blood stream. You may shower after 24 hours SITE CARE: After 24 hours, you may remove the dressing and leave the site open to air. Keep the site clean and dry. Clean gently and pat dry. You can expect bruising and tenderness that gradually resolve within a week or two. Return to work as instructed per your physician Resume driving as instructed per physician Keep all scheduled follow up appointments Resume medications as instructed IMPORTANT: If prescribed a Platelet Aggregation Inhibitor such as, Plavix, Brilinta or Effient: Duration of therapy is minimum one year These medications are often used in combination with Aspirin in prevention of future heart attacks Never discontinue unless consult with your Looper Fixer STROKE (CVA) Risk factors for a stroke are: Age, cigarette smoking, diabetes, excessive alcohol consumption, family history, high blood pressure, overweight, physical inactivity, prior stroke, heart attack, diagnosis of carotid artery stenosis or other artery disease. Warning signs: Sudden numbness or weakness of the face, arm or leg; especially on one side of the body, sudden confusion, trouble speaking or understanding, sudden trouble seeing in one or both eyes, sudden trouble walking, dizziness, loss of balance or coordination, sudden severe headache with no cause. Call 911 or go to the Emergency Room. CONGESTIVE HEART FAILURE: If you have been diagnosed with Congestive Heart Failure (CHF) and your symptoms return, make an appointment with your physician Weigh yourself daily. Notify your physician if you have a weight gain of two or more pounds in one day or five or more pounds in one week. If you experience any difficulty breathing, please call 911 BLEEDING: Although the risk of bleeding is minimal, it can happen. If you have any bleeding from the site, apply firm pressure above the puncture site for 10-15 minutes. If the bleeding does not stop, continue manual pressure and call 911 Contact your physician if: You develop a fever greater than 101 degrees Fahrenheit Your site becomes reddened or has any drainage You have an increase in pain or burning at the site or if a large knot forms at the site. If you experience chest pain, shortness of breath, dizziness, or extreme tiredness, stop the activity and rest. Please notify your physicians office if you experience any of these symptoms and they are not relieved by rest please call 911! - Diet and Activity Activity: as per physical therapy, increase activity as tolerated Diet: low fat, low cholesterol, low salt diet <Rik Flores - Last Filed: 10/12/17 19:30> Orders not resulted at time of discharge: Pending orders 10/10/17 07:00 ECG 12 lead ECG [ECG] Routine Date of Encounter: 10/12/17 - Discharge Diagnosis (1) STEMI (ST elevation myocardial infarction) Status: Acute Qualifiers: Involved coronary artery: right coronary artery Qualified Code(s): I21.11 - ST elevation (STEMI) myocardial infarction involving right coronary artery (2) Alcohol abuse Status: Chronic (3) Fall Status: Acute Qualifiers: Encounter type: subsequent encounter Qualified Code(s): W19.XXXD - Unspecified fall, subsequent encounter (4) Essential hypertension Status: Acute (5) COPD (chronic obstructive pulmonary disease) Status: Chronic Qualifiers: COPD type: unspecified COPD Qualified Code(s): J44.9 - Chronic obstructive pulmonary disease, unspecified (6) Tobacco abuse Priority: Secondary Status: Chronic (7) Hepatitis C Status: Chronic Qualifiers: Viral hepatitis chronicity: chronic Hepatic coma status: without hepatic coma Qualified Code(s): B18.2 - Chronic viral hepatitis C (8) Squamous cell lung cancer Priority: Secondary Status: Chronic Qualifiers: Laterality: unspecified laterality Qualified Code(s): C34.90 - Malignant neoplasm of unspecified part of unspecified bronchus or lung Hospital course: Mr. Preciado is a 57 year old male - Time Spent with Patient Total time spent providing and/or coordinating discharge services: 38min Date of admission: 10/09/17 01:17 Primary care physician: Sandra Bell MD Consults: 10/09/17 01:35 Consult to Cardiac Rehabilitation-Phase1 [CONS] Routine Comment: Reason for Consult: AMI Call Completed: Yes Consult to Nurse Navigator [CONS] Routine Comment: 10/11/17 11:20 Consult to Physical Therapy [CONS] Routine Comment: Evaluate, develop and implement POC Reason for Consult: Fall at home. Discharge planning Does patient have active BEDREST order?: No Is patient medically & hemodynamically stable?: Yes 10/12/17 11:40 Consult to Senior Drupal Developer [CONS] Routine Reason for SW Consult: PT/OT recommend home health. Appreciate assistance. - Constitutional Vitals: Temp Pulse Resp BP Pulse Ox 97.7 F 76 18 130/83 95 10/12/17 06:41 10/12/17 06:41 10/12/17 07:47 10/12/17 06:41 10/12/17 07:47 - Attending Attestation I examined this patient and my medical decision-making was reviewed with the Resident Physician on 10/12/17. I agree with the documented findings, disposition and treatment plan as described except to the extent set forth below. Mr Preciado has been admitted for acute STEMI. He is doing better and on cardiac meds. He was seen by PT and HHC recommended. He is ready for discharge home. Exam alert Comfortable Mucus membranes dry Heart reg No wheeze abd soft Plan D/C home today with HHC Advised to continue ASA/Plavix
[2017-10-12] MEDS: Venlafaxine XR (24 HR) 75 MG CAP.ER.24H PO SCH (10:52)
[2017-10-12] MEDS: Diclofenac Sodium 75 MG TABLET PO SCH (10:54)
[2017-10-12] MEDS: Pregabalin 75 MG CAPSULE PO SCH (10:54)
[2017-10-12] MEDS: Nicotine 21 MG PATCH.TD24 TD SCH (10:54)
[2017-10-12] MEDS: Aspirin 81 MG TAB.CHEW PO SCH (10:54)
--- NOTE | 2017-10-12 11:40 | Physician Discharge Referral ---
Home Health/Hosp Referral Info Transfer to: Home Health Provider in Charge Post Discharge: PCP - Diagnosis (1) STEMI (ST elevation myocardial infarction) Priority: Primary Status: Acute (2) Alcohol abuse Priority: Secondary Status: Chronic (3) Fall Priority: Secondary Status: Acute (4) Orthostatic hypotension Priority: Secondary Status: Suspected (5) Essential hypertension Priority: Secondary Status: Acute (6) Squamous cell carcinoma Priority: Secondary Status: Chronic (7) Hepatitis C Priority: Secondary Status: Chronic (8) COPD (chronic obstructive pulmonary disease) Priority: Secondary Status: Chronic (9) Tobacco abuse Priority: Secondary Status: Chronic - Respiratory Orders Smoking Cessation: Smoking cessation has been advised. For more information, call the [place] Tobacco Quit Line at 2-840-RXQZ-NOW. - Diet/Nutrition Diet/Nutrition Orders: Cardiac - Activity Activity Orders: Ambulate - Services Needed Following services are medically necessary services: Nursing, Home Health Aide, Physical Therapy, Occupational Therapy - Transfer Medications Prescriptions: Carvedilol [Coreg] 3.125 mg PO BIDWM #30 tablet Clopidogrel [Plavix] 75 mg PO DAILY #30 tablet Lisinopril [Zestril] 5 mg PO DAILY #30 tablet Nicotine Patch [Nicoderm] 21 mg TD DAILY #30 patch.td24 Rosuvastatin [Crestor] 40 mg PO HS #30 tablet Home Medications: Budesonide/Formoterol 160/4.5 [Symbicort 160/4.5] 2 puff IH BIDR 02/11/17 [ History] Trazodone HCl 100 mg PO QPM 02/11/17 [History] Pregabalin [Lyrica] 150 mg PO BID 07/22/17 [History] Albuterol Sulfate [Proair Hfa] 2 puff IH Q4H PRN 10/09/17 [History] Aspirin Enteric Coated [Aspirin EC] 81 mg PO DAILY 10/09/17 [History] Diclofenac Sodium [Voltaren] 75 mg PO BID 10/09/17 [History] HYDROcodone/Acet 5/325 mg [[place] 5-325 mg] 1.5 tab PO Q6H PRN 10/09/17 [History] Venlafaxine XR (24 HR) [Effexor XR] 75 mg PO DAILY 10/09/17 [History] Carvedilol [Coreg] 3.125 mg PO BIDWM #30 tablet 10/12/17 [Rx] Clopidogrel [Plavix] 75 mg PO DAILY #30 tablet 10/12/17 [Rx] Lisinopril [Zestril] 5 mg PO DAILY #30 tablet 10/12/17 [Rx] Nicotine Patch [Nicoderm] 21 mg TD DAILY #30 patch.td24 10/12/17 [Rx] Rosuvastatin [Crestor] 40 mg PO HS #30 tablet 10/12/17 [Rx] Allergies/Adverse Reactions: 3 Allergy/AdvReac Type Severity Reaction Status Date / Time No Known Allergies Allergy Verified 10/08/17 23:51 Certification: Further, I certify that my clinical findings support that this patient is homebound (i.e. absences from home require considerable and taxing effort and are for medical reasons or mosque services or infrequently or short duration when for other reasons) because: Homebound Reason: Patient requires assistance of a person or device to safely leave home Attestation: My signature below is to certify that this patient is under my care and that I, or nurse practitioner, or a physician's assistant hairstylist working with me, has a face-to -face encounter with this patient.
--- NOTE | 2017-10-14 00:50 | Electrocardiograph Report ---
[address] [place], [place] [address] Test Date: 2017-10-09 Pat Name: Lance Preciado Department: 109 Room: 2NE26 Gender: M Manager Produce: : 1960 Requested By: Lulu Sherman Order Number: [id number] Reading MD: Vicenta Mullins Measurements Intervals [place] Rate: 82 P: 33 DC: 181 QRS: 50 QRSD: 98 T: 102 QT: 391 QTc: 430 Interpretive Statements SINUS RHYTHM ST ELEVATION, CONSIDER INFERIOR INJURY ACUTE ND Electronically Signed On 10-14-2017 0:49:11 EDT by Vicenta Mullins
== END 2017-10-12 13:15 | disposition home health service (06) | DRG 247 ==
LOC: EMEROO 22:07 → ICNU 10-09 00:34 → SUATTDRO 10-09 01:17 → 2NENU 10-09 22:36
PROVIDERS: ADMIT Internal Medicine Cardiovascular Disease; ATTEND Internal Medicine

== ENCOUNTER 2018-01-26 13:48 | Observation (INO) ==
[~2018-01-26 13:48] MED LIST: *HR* Heparin 10,000 UNIT/10 ML VIAL ONE; Heparin 1,000 UNITS/500 mL 0 ML ONE; ISOVUE-370 200 ML INFUS..BTL IV ONE; Nitroglycerin 1,000 MCG/10 ML VIAL IV ONE
[2018-01-26] MEDS ORDERED: Aspirin 81 MG TAB.CHEW PO ONE (13:57)
[2018-01-26] MEDS ORDERED: Nitroglycerin 0.4 MG TAB.SUBL SL ONE (13:57)
--- NOTE | 2018-01-26 14:01 | Emergency Department Note ---
Disposition Clinical Impression: Chest pain Qualifiers: Chest pain type: unspecified Qualified Code(s): R07.9 - Chest pain, unspecified Disposition: Admitted As Inpatient Condition: Good Time of Disposition: 15:47 General Adult HPI - General Chief complaint: ED Chest Pain Stated complaint: stemi Time Seen by Provider: 01/26/18 13:54 Source: patient, EMS Mode of arrival: EMS Limitations: no limitations Nursing Notes Reviewed: Yes Vital Signs Reviewed: Yes - History of Present Illness HPI Narrative: Patient is a 57-year-old male that came to the emergency department due to chest pain located in the center of his chest. Patient states that the chest pain is a pressure-like pain. States is been ongoing for the past couple weeks. Patient states that he is short of breath however is not worse than his baseline shortness of breath due to smoking. Patient denies any nausea or diaphoresis. Patient states that his home health aide came today and found out that he was having chest pain and recommended that he call the squad and come to the emergency department for further evaluation. Patient states that back in October he had a full cardiac arrest with a AK. Patient states that he also has had 2 stents that have been placed. Pain Scale: 6 - Related Data Home Medications Medication Instructions Recorded Confirmed Budesonide/Formoterol 160/4.5 2 puff IH BIDR 02/11/17 01/21/18 [Symbicort 160/4.5] Trazodone HCl 100 mg PO QPM 02/11/17 01/21/18 Albuterol Sulfate [Proair Hfa] 2 puff IH Q4H PRN 10/09/17 01/21/18 Aspirin Enteric Coated [Aspirin EC] 81 mg PO DAILY 10/09/17 01/21/18 HYDROcodone/Acet 5/325 mg [[place] 1.5 tab PO Q6H PRN 10/09/17 01/21/18 5-325 mg] Venlafaxine XR (24 HR) [Effexor XR] 75 mg PO DAILY 10/09/17 01/21/18 Benzonatate [Tessalon] 100 mg PO TID 11/23/17 01/21/18 Cholecalciferol (Vitamin D3) 50,000 unit PO DAILY 11/23/17 01/21/18 [Optimal D3] Rosuvastatin [Crestor] 40 mg PO HS 11/23/17 01/21/18 Ticagrelor [Brilinta] 90 mg PO BID 11/23/17 01/21/18 hydrOXYzine HCl [Hydroxyzine HCl] 25 mg PO BID PRN 11/23/17 01/21/18 Previous Rx's Medication Instructions Recorded Carvedilol [Coreg] 3.125 mg PO BIDWM #30 tablet 10/12/17 Lisinopril [Zestril] 5 mg PO DAILY #30 tablet 10/12/17 Nitroglycerin [Nitrostat] 0.4 mg SL PRN PRN #30 tab.subl 11/24/17 Dronabinol [Marinol] 5 mg PO BID 30 Days #60 capsule 01/21/18 Allergies Allergy/AdvReac Type Severity Reaction Status Date / Time No Known Allergies Allergy Verified 12/23/17 12:54 All systems ED: reviewed and negative except as stated. Cardiovascular: Reports: chest pain Respiratory: Reports: dyspnea (Chronic) Gastrointestinal: Denies: nausea Past Medical History - Past Medical History Medical history: Reports: hepatitis, hyperlipidemia, hypertension, myocardial infarction, other Surgical history: Reports: splenectomy Psychiatric history: Reports: anxiety, depression - Social History Smoking Status: Current every day smoker Smokeless Tobacco Status: No Alcohol use: Reports: heavy Drug use: Reports: none Physical Exam - General Limitations: no limitations General appearance: alert, in no apparent distress - Head Head exam: atraumatic, normocephalic - Eye Eye exam: Present: normal appearance, EOMI - Neck Neck exam: Present: normal inspection, full ROM, trachea midline - Respiratory Respiratory exam: Present: other (Course breath sounds in the right lung.) - Cardiovascular Cardiovascular exam: Present: regular rate, normal rhythm, normal heart sounds, +S1, +S2 - Abdominal Exam Abdominal exam: Present: soft, Non-Tender, normal bowel sounds - Neurological Exam Neurological exam: Present: alert, oriented X3 - Psychiatric Psychiatric exam: Present: normal affect, normal mood - Skin Skin exam: Present: warm, intact Course Vital Signs Temperature 97.8 F 01/26/18 13:48 Pulse Rate 90 01/26/18 13:48 Respiratory Rate 20 01/26/18 13:48 Blood Pressure 125/81 01/26/18 13:48 O2 Sat by Pulse Oximetry 97 01/26/18 13:48 Temperature 97.8 F 01/26/18 13:48 Pulse Rate 90 01/26/18 13:48 Respiratory Rate 20 01/26/18 13:48 Blood Pressure 125/81 01/26/18 13:48 O2 Sat by Pulse Oximetry 97 01/26/18 13:48 Oxygen Delivery Oxygen Delivery Room Air Medical Decision Making - MDM Narrative Medical decision making narrative: Due the patient's prehospital EKGs a STEMI alert was called. Once the patient arrived here in the emergency department a repeat EKG was obtained which was less concerning for STEMI but we still called and spoke with Dr. Sherman the on- call supervisor [employer]. He reviewed the EKGs and did not feel that this was a STEMI at this time. The patient will be kept here in the emergency department for further workup. The patient will need admission to the hospital for further evaluation and management of his chest pain. Patient's laboratory testing was unremarkable. His chest x-ray did not show any acute cardiopulmonary process but did show possible worsening of his underlying cancer. The EKG was reviewed by cardiology and here in the emergency department. We do not feel that this is a STEMI at this time due to the patient 's significant cardiac history feel that it is important that he be admitted to the hospital for further evaluation and management. The attending Dr. Narvaez admitted the patient to the hospital and the patient was accepted by the admitting hospitalist. - Medical Records Medical records reviewed: Yes I reviewed the patient's medical records. - Lab Data Lab results reviewed: Yes I reviewed the patient's lab results. Result diagrams: 01/26/18 14:05 01/26/18 14:05 Lab Results 01/26/18 01/26/18 01/26/18 Range/Units 14:05 14:05 14:05 WBC 9.0 (4.3-11.1) K/mcL RBC 4.85 (4.19-5.50) M/mcL Hgb 14.9 (12.9-16.9) g/dL Hct 44.5 (37.5-50.1) % MCV 91.8 (83.0-100.0) fL MCH 30.7 (28.0-33.3) pg MCHC 33.5 (31.6-35.5) g/dL RDW 14.4 (11.5-14.5) % Plt Count 534 H (140-400) K/mcL MPV 8.5 L (9.4-12.4) fL Immature Gran % 0.4 (0-4) % Seg Neutrophils % 70.2 % Lymphocytes % 10.4 % Monocytes % 10.6 % Eosinophils % 6.8 % Basophils % 1.6 % Neutrophils # 6.3 (1.6-8.9) K/mcL Lymphocytes # 0.9 (0.6-4.6) K/mcL Monocytes # 1.0 (0.0-1.3) K/mcL Eosinophils # 0.6 (0.0-0.6) K/mcL Basophils # 0.1 (0.0-0.2) K/mcL PT 11.6 (9.4-12.1) Seconds INR 1.0 APTT 30.0 (26.0-36.0) Seconds Sodium 140 (136-145) mEq/L Potassium 4.4 (3.5-5.1) mEq/L Chloride 106 (98-107) mEq/L Carbon Dioxide 31 H (23-29) mEq/L BUN 9 (6-20) mg/dL Creatinine 0.69 L (0.70-1.30) mg/dL Est GFR ( Amer) > 60 (> 60) Est GFR (Non-Af Amer) > 60 (> 60) BUN/Creatinine Ratio 13 (6-26) Glucose 84 (70-105) mg/dL Calculated Osmolality 288 (280-300) Calcium 9.3 (8.6-10.3) mg/dL Troponin I < 0.03 (< 0.04) ng/mL - Radiology Data Radiology results reviewed: Yes I reviewed the patient's radiology results. Chest X-Ray 01/26/18 13:57 IMPRESSION: More pronounced left perihilar and lung opacity compared with the previous evaluation with loss of volume. This may represent progression of disease as this patient is known to have lung cancer. D/ / 01/26/2018 14:26:15 Richelle Kelly MD / binta Interpreting Provider: Richelle Kelly MD - EKG Data EKG #1 EKG attestation: Yes I reviewed and interpreted this EKG. EKG results narrative: EKG shows a sinus rhythm rate 85 bpm, UT interval 193, QRS duration of 102, QTC of 416 with a normal axis. The ST segment in 2-3 and aVF appears to have a screw appearance however when compared to previous EKG on 11/23/17 this was very similar.
[2018-01-26 14:16] LABS: Basophils # 0.1 K/mcL (0.0-0.2); Basophils % 1.6 %; Eosinophils # 0.6 K/mcL (0.0-0.6); Eosinophils % 6.8 %; Hematocrit 44.5 % (37.5-50.1); Hemoglobin 14.9 g/dL (12.9-16.9); Immature Granulocytes % 0.4 % (0-4); Lymphocytes # 0.9 K/mcL (0.6-4.6); Lymphocytes % 10.4 %; Mean Corpuscular HGB Conc 33.5 g/dL (31.6-35.5); Mean Corpuscular Hemoglobin 30.7 pg (28.0-33.3); Mean Corpuscular Volume 91.8 fL (83.0-100.0); Mean Platelet Volume 8.5 fL (9.4-12.4); Monocytes % 10.6 %; Neutrophils # 6.3 K/mcL (1.6-8.9); Platelet Count 534 K/mcL (140-400); Red Blood Count 4.85 M/mcL (4.19-5.50); Red Cell Distribution Width 14.4 % (11.5-14.5); Segmented Neutrophils % 70.2 %
[2018-01-26 14:19] LABS: Prothrombin Time 11.6 Seconds (9.4-12.1)
[2018-01-26 14:37] LABS: BUN/Creatinine Ratio 13 (6-26); Blood Urea Nitrogen 9 mg/dL (6-20); Calcium 9.3 mg/dL (8.6-10.3); Carbon Dioxide 31 mEq/L (23-29); Chloride 106 mEq/L (98-107); Glucose 84 mg/dL (70-105); Osmolality,Calculated 288 (280-300); Potassium 4.4 mEq/L (3.5-5.1); Sodium 140 mEq/L (136-145); eGFR For Non-African Americans > 60 (> 60)
[2018-01-26 14:38] LABS: Troponin I < 0.03 ng/mL (< 0.04)
--- NOTE | 2018-01-26 14:51 | Emergency Department Note ---
Disposition Clinical Impression: Chest pain Qualifiers: Chest pain type: unspecified Qualified Code(s): R07.9 - Chest pain, unspecified Disposition: Admitted As Inpatient Condition: Fair Referrals: Sandra Bell MD [Primary Care Provider] - Forms: ED Satisfaction Letter Time of Disposition: 14:52 Chest Pain HPI - General Chief Complaint: ED Chest Pain Stated Complaint: stemi Time Seen by Provider: 01/26/18 13:54 Source: patient, EMS Mode of arrival: EMS Limitations: no limitations Vital Signs Reviewed: Yes Nursing Notes Reviewed: Yes - History of Present Illness Severity scale (1-10): 6 - Related Data Home Medications Medication Instructions Recorded Confirmed Budesonide/Formoterol 160/4.5 2 puff IH BIDR 02/11/17 01/21/18 [Symbicort 160/4.5] Trazodone HCl 100 mg PO QPM 02/11/17 01/21/18 Albuterol Sulfate [Proair Hfa] 2 puff IH Q4H PRN 10/09/17 01/21/18 Aspirin Enteric Coated [Aspirin EC] 81 mg PO DAILY 10/09/17 01/21/18 HYDROcodone/Acet 5/325 mg [[place] 1.5 tab PO Q6H PRN 10/09/17 01/21/18 5-325 mg] Venlafaxine XR (24 HR) [Effexor XR] 75 mg PO DAILY 10/09/17 01/21/18 Benzonatate [Tessalon] 100 mg PO TID 11/23/17 01/21/18 Cholecalciferol (Vitamin D3) 50,000 unit PO DAILY 11/23/17 01/21/18 [Optimal D3] Rosuvastatin [Crestor] 40 mg PO HS 11/23/17 01/21/18 Ticagrelor [Brilinta] 90 mg PO BID 11/23/17 01/21/18 hydrOXYzine HCl [Hydroxyzine HCl] 25 mg PO BID PRN 11/23/17 01/21/18 Previous Rx's Medication Instructions Recorded Carvedilol [Coreg] 3.125 mg PO BIDWM #30 tablet 10/12/17 Lisinopril [Zestril] 5 mg PO DAILY #30 tablet 10/12/17 Nitroglycerin [Nitrostat] 0.4 mg SL PRN PRN #30 tab.subl 11/24/17 Dronabinol [Marinol] 5 mg PO BID 30 Days #60 capsule 01/21/18 Allergies Allergy/AdvReac Type Severity Reaction Status Date / Time No Known Allergies Allergy Verified 12/23/17 12:54 Cardiovascular: Reports: chest pain Respiratory: Reports: dyspnea (Chronic) Gastrointestinal: Denies: nausea Chest Pain PMH - Past Medical History Medical history: Reports: hepatitis, hyperlipidemia, hypertension, myocardial infarction, other Surgical history: Reports: splenectomy Psychiatric history: Reports: anxiety, depression - Social History Smoking Status: Current every day smoker Alcohol use: Reports: heavy Drug use: Reports: none Physical Exam - General Limitations: no limitations General appearance: alert, in no apparent distress Course Vital Signs Temperature 97.8 F 01/26/18 13:48 Pulse Rate 90 01/26/18 13:48 Respiratory Rate 20 01/26/18 13:48 Blood Pressure 125/81 01/26/18 13:48 O2 Sat by Pulse Oximetry 97 01/26/18 13:48 Temperature 97.8 F 01/26/18 13:48 Pulse Rate 90 01/26/18 13:48 Respiratory Rate 20 01/26/18 13:48 Blood Pressure 125/81 01/26/18 13:48 O2 Sat by Pulse Oximetry 97 01/26/18 13:48 Oxygen Delivery Oxygen Delivery Room Air Chest Pain - Lab Data Result diagrams: 01/26/18 14:05 01/26/18 14:05 Lab Results 01/26/18 01/26/18 01/26/18 Range/Units 14:05 14:05 14:05 WBC 9.0 (4.3-11.1) K/mcL RBC 4.85 (4.19-5.50) M/mcL Hgb 14.9 (12.9-16.9) g/dL Hct 44.5 (37.5-50.1) % MCV 91.8 (83.0-100.0) fL MCH 30.7 (28.0-33.3) pg MCHC 33.5 (31.6-35.5) g/dL RDW 14.4 (11.5-14.5) % Plt Count 534 H (140-400) K/mcL MPV 8.5 L (9.4-12.4) fL Immature Gran % 0.4 (0-4) % Seg Neutrophils % 70.2 % Lymphocytes % 10.4 % Monocytes % 10.6 % Eosinophils % 6.8 % Basophils % 1.6 % Neutrophils # 6.3 (1.6-8.9) K/mcL Lymphocytes # 0.9 (0.6-4.6) K/mcL Monocytes # 1.0 (0.0-1.3) K/mcL Eosinophils # 0.6 (0.0-0.6) K/mcL Basophils # 0.1 (0.0-0.2) K/mcL PT 11.6 (9.4-12.1) Seconds INR 1.0 APTT 30.0 (26.0-36.0) Seconds Sodium 140 (136-145) mEq/L Potassium 4.4 (3.5-5.1) mEq/L Chloride 106 (98-107) mEq/L Carbon Dioxide 31 H (23-29) mEq/L BUN 9 (6-20) mg/dL Creatinine 0.69 L (0.70-1.30) mg/dL Est GFR ( Amer) > 60 (> 60) Est GFR (Non-Af Amer) > 60 (> 60) BUN/Creatinine Ratio 13 (6-26) Glucose 84 (70-105) mg/dL Calculated Osmolality 288 (280-300) Calcium 9.3 (8.6-10.3) mg/dL Troponin I < 0.03 (< 0.04) ng/mL Attestation Statement - Attestation Attestation: I, Shreyas Narvaez, examined this patient and my medical decision-making was reviewed with the TELEPHONIC RN/PA/Advanced Practice Nurse/Resident Physician. I agree with the documented findings, disposition and treatment plan as described except to the extent set forth below. 57-year-old male presents emergency Department with concerns of chest pain. He was brought to the emergency department by EMS he sent EKG which was concerning for STEMI. Catheter lab was not activated and we spoke with Dr. Sherman. Patient states he has had pressure in the center of his chest over the past week. He was evaluated by his home health nurse today who recommended he be evaluated in the emergency department. He did not experience a significant worsening of his chest pain today more than the past couple days. He denies fever, syncope, diaphoresis, nausea. He does have a history of previous DC which cause cardiac arrest. This was less than 6 months ago. On arrival to the emergency department we obtained a repeat EKG which still showed mild elevations in II, III, and F aVF however did not meet criteria for STEMI. Initial troponin negative. Chest x-ray did not show infiltrate. Dr. Sherman evaluated the patient at bedside and agreed with the plan for admission to the hospital for further care and evaluation.
[2018-01-26] MEDS ORDERED: Nitroglycerin 0.4 MG TAB.SUBL SL PRN ×2 (15:28→15:59)
[2018-01-26] MEDS ORDERED: Ondansetron 4 MG/2 ML VIAL IVP PRN (15:28)
--- NOTE | 2018-01-26 15:44 | Internal Med History&Physical ---
Date of Encounter: 01/26/18 Time of Encounter: 15:36 Internal Medicine - H&P: HPI Chief complaint: Chest pain Admitted From: Home Plans for Post Hospital Care: Home History of present illness: Mr. Preciado is a 57 year old male with history of alcohol abuse, Hep C, COPD, and CAD. Patient reported pressure-like pain chest pain that began 2 weeks ago. Pain has been intermittent, anginal equivalent pain. Patient had a STEMI back in November 2017 with 2 stents placed, over a 30 day period. 1 stent in med circ and 1 in the RCA. Today's chest x-ray showed more pronounced left perihilar and lung capacity, compared with previous study, could show disease progression of lung CA. Patient currently receiving hormone therapy every 2 weeks. Patient indicated he had 30 treatments of chemotherapy in the past. Troponin is less than 0.03. EKG showed mild elevation in leads 2, 3, aVF. Per the ED note, the patient did not meet the STEMI criteria. Cardiology saw the patient. Will trend serial cardiac troponins. CXR showed a more pronounced left perihilar and lung capacity. Compared to another study this could be a disease progression or lung CA. The patient had a Echo 10/2017, that showed an EF of 55 % and mild LVH. Past Med Surg Social Fam HX - Past Medical History Medical history: hepatitis, hyperlipidemia, hypertension, myocardial infarction , other Additional medical history: hepatitis C Psychiatric history: anxiety, depression - Past Surgical History Surgical History: splenectomy - Social History Smoking Status: Current every day smoker Smokeless Tobacco Status: No Alcohol use: heavy Drug use: none Internal Medicine - H&P: Meds Budesonide/Formoterol 160/4.5 [Symbicort 160/4.5] 2 puff IH BIDR 02/11/17 [ History] Trazodone HCl 100 mg PO QPM 02/11/17 [History] Albuterol Sulfate [Proair Hfa] 2 puff IH Q4H PRN 10/09/17 [History] Aspirin Enteric Coated [Aspirin EC] 81 mg PO DAILY 10/09/17 [History] HYDROcodone/Acet 5/325 mg [[place] 5-325 mg] 1.5 tab PO Q6H PRN 10/09/17 [History] Venlafaxine XR (24 HR) [Effexor XR] 75 mg PO DAILY 10/09/17 [History] Carvedilol [Coreg] 3.125 mg PO BIDWM #30 tablet 10/12/17 [Rx] Lisinopril [Zestril] 5 mg PO DAILY #30 tablet 10/12/17 [Rx] Benzonatate [Tessalon] 100 mg PO TID 11/23/17 [History] Cholecalciferol (Vitamin D3) [Optimal D3] 50,000 unit PO DAILY 11/23/17 [History ] Rosuvastatin [Crestor] 40 mg PO HS 11/23/17 [History] Ticagrelor [Brilinta] 90 mg PO BID 11/23/17 [History] hydrOXYzine HCl [Hydroxyzine HCl] 25 mg PO BID PRN 11/23/17 [History] Nitroglycerin [Nitrostat] 0.4 mg SL PRN PRN #30 tab.subl 11/24/17 [Rx] Dronabinol [Marinol] 5 mg PO BID 30 Days #60 capsule 01/21/18 [Rx] 3 Allergy/AdvReac Type Severity Reaction Status Date / Time No Known Allergies Allergy Verified 12/23/17 12:54 All Systems PM: A 10-system review of systems was performed and is negative for pertinent findings except as documented above in the HPI. - Constitutional Constitutional: no chills, no fever(s), no night sweats - EENT Eyes: no change in vision, no discharge, no pain, no photophobia Ears: no ear discharge, no ear pain, no tinnitus Nose, mouth and throat: no dysphagia, no nasal discharge, no neck pain, no sore throat - Cardiovascular Cardiovascular ROS IM: no chest pain, no diaphoresis, no dyspnea, no lightheadedness, no palpitations, no syncope - Respiratory Respiratory: no cough, no dyspnea, no wheezing, no excessive phlegm production - Gastrointestinal Gastrointestinal: no abdominal pain, no diarrhea, no hematemesis, no hematochezia, no melena, no nausea, no vomiting - Musculoskeletal Musculoskeletal ROS IM: no numbness, no tingling - Integumentary Integumentary IM: no rash, no unusual bruising - Neurological Neurological ROS: no confusion, no convulsions, no focal weakness, no numbness, no tingling, no tremor(s) - Hematologic/Lymphatic Hematologic/Lymphatic: no easy bruising - Constitutional Vitals: Temp Pulse Resp BP Pulse Ox 97.8 F 90 18 131/85 97 01/26/18 13:48 01/26/18 13:48 01/26/18 15:15 01/26/18 15:15 01/26/18 13:48 General appearance: Present: A&O X 3, answers questions appropriately - Head Head exam: Present: atraumatic, normocephalic - Eye Eye exam: Present: PERRL, conjuntiva pink, sclera anicteric Pupils: Present: PERRL - Neck Neck exam general surgery: Present: supple, trachea midline. Absent: lymphadenopathy - Respiratory Respiratory exam: Present: decreased breath sounds, CTAB, wheezes (left lobe). Absent: accessory muscle use, rales, rhonchi - Cardiovascular Cardiovascular exam: Present: RRR, +S1, +S2. Absent: diastolic murmur, gallop, rubs, systolic murmur - GI/Abdominal GI/Abdominal exam: Present: normal bowel sounds, soft, no peritoneal signs. Absent: distended, tenderness - Extremities Exam Extremities exam: Present: warm, radial pulses palpable and symmetrical. Absent : calf tenderness, cyanotic, pedal edema - Neurological Exam Neurological exam: Present: CN II-XII intact, oriented X3, no focal deficits. Absent: pronater drift, facial droop, speech deficit - Skin Skin exam: Present: dry, intact Internal Med - H&P Results - Labs CBC & Chem 7: 01/26/18 14:05 01/26/18 14:05 - Assessment and plan (1) Chest pain Current Visit: Yes Status: Acute Assessment and plan: Serial cardiac enzymes x3 Cardiac monitoring Cardiology consulted Oxygen prn Nitroglycerin prn Qualifiers: Chest pain type: unspecified Qualified Code(s): R07.9 - Chest pain, unspecified (2) Essential hypertension Current Visit: No Status: Acute Assessment and plan: Bp is marginally controlled, will continue current bp meds Continue coreg and lisinopril (3) CAD (coronary artery disease) Current Visit: No Status: Chronic Assessment and plan: The patient has a history of [place] in 11/2017. Cardiology consulted Heart cath in 11/2017 with 2 stents placed Qualifiers: Coronary Disease-Associated Artery/Lesion type: [place] artery [place] vs. transplanted heart: [place] heart Associated angina: with unspecified angina Qualified Code(s): I25.119 - Atherosclerotic heart disease of [place] coronary artery with unspecified angina pectoris (4) COPD (chronic obstructive pulmonary disease) Current Visit: No Status: Chronic Assessment and plan: Controlled Will continue bronchodilators Oxygen prn keep sats gt 94% Qualifiers: COPD type: unspecified COPD Qualified Code(s): J44.9 - Chronic obstructive pulmonary disease, unspecified (5) Hepatitis C Current Visit: No Status: Chronic Qualifiers: Viral hepatitis chronicity: chronic Hepatic coma status: without hepatic coma Qualified Code(s): B18.2 - Chronic viral hepatitis C (6) Tobacco abuse Current Visit: No Status: Chronic Assessment and plan: smoking cessation - Time Spent With Patient Total time spent is greater than 50% in coordination of care (as documented) at patient's floor/unit and/or counseling patient:
[2018-01-26] MEDS: *HR* HYDROcodone/Acet 5/325 mg TABLET PO PRN (18:42)
[2018-01-26] MEDS: Budesonide/Formoterol 160/4.5 MDI IH SCH (20:41)
[2018-01-26] MEDS: *HR* Ticagrelor 90 MG TABLET PO SCH (20:49)
[2018-01-26] MEDS: Benzonatate 100 MG CAPSULE PO SCH (20:50)
[2018-01-26] MEDS: traZODone 50 MG TABLET PO SCH (22:08)
[2018-01-27 02:07] LABS: Basophils # 0.2 K/mcL (0.0-0.2); Basophils % 1.9 %; Eosinophils # 0.7 K/mcL (0.0-0.6); Eosinophils % 8.7 %; Immature Granulocytes % 0.5 % (0-4); Lymphocytes % 12.7 %; Mean Corpuscular HGB Conc 33.6 g/dL (31.6-35.5); Mean Corpuscular Volume 92.2 fL (83.0-100.0); Mean Platelet Volume 8.7 fL (9.4-12.4); Monocytes # 1.3 K/mcL (0.0-1.3); Monocytes % 16.7 %; Neutrophils # 4.8 K/mcL (1.6-8.9); Platelet Count 471 K/mcL (140-400); Red Blood Count 4.23 M/mcL (4.19-5.50); Red Cell Distribution Width 14.2 % (11.5-14.5); Segmented Neutrophils % 59.5 %
[2018-01-27 02:09] LABS: Hemoglobin 13.1 g/dL (12.9-16.9)
[2018-01-27 02:13] LABS: Prothrombin Time 11.4 Seconds (9.4-12.1)
[2018-01-27 02:26] LABS: Alanine Aminotransferase 16 Units/L (7-52); Albumin 3.3 g/dL (3.5-5.7); Albumin/Globulin Ratio 1.1 (1.1-2.2); Alkaline Phosphatase 118 Units/L (34-104); Aspartate Amino Transferase 23 Units/L (13-39); BUN/Creatinine Ratio 26 (6-26); Bilirubin,Total 0.2 mg/dL (0.3-1.0); Blood Urea Nitrogen 18 mg/dL (6-20); Carbon Dioxide 27 mEq/L (23-29); Chloride 107 mEq/L (98-107); Globulin 2.9 g/dL (2.4-3.5); Glucose 116 mg/dL (70-105); Magnesium 2.2 mg/dL (1.6-2.6); Osmolality,Calculated 291 (280-300); Potassium 4.2 mEq/L (3.5-5.1); Sodium 139 mEq/L (136-145); Total Protein 6.2 g/dL (6.4-8.9); eGFR For Non-African Americans > 60 (> 60)
[2018-01-27] MEDS: *HR* HYDROcodone/Acet 5/325 mg TABLET PO PRN ×2 (05:55→15:01)
[2018-01-27] MEDS: Venlafaxine XR (24 HR) 75 MG CAP.ER.24H PO SCH (09:33)
[2018-01-27] MEDS: Benzonatate 100 MG CAPSULE PO SCH ×3 (09:34→20:33)
[2018-01-27] MEDS: Aspirin 81 MG TAB.CHEW PO SCH (09:34)
[2018-01-27] MEDS: *HR* Ticagrelor 90 MG TABLET PO SCH ×2 (09:34→20:33)
[2018-01-27] MEDS: Cholecalciferol (D-3) 1,000 UNIT TABLET PO SCH (09:34)
--- NOTE | 2018-01-27 10:54 | Cardiology Consult Note ---
Date of Encounter: 01/27/18 Time of Encounter: 09:30 Assessment and Plan (1) Chest pain Current Visit: Yes Status: Acute Per cardiology: -Admitted with chest pain, atypical. Worsens with deep inspiration. -Denies exertional symptoms. -Denies current chest pain. -ECG reviewed with no acute ischemic changes noted. -Troponins negative x3. -Last TTE 10/2017 with LVEF 55%, mild concentric LVH, mild MR, mild-moderate AR, no segmental wall motion abnormalities noted. -Will check limited echo. -Can consider outpatient stress test if has recurrence of symptoms. Qualifiers: Chest pain type: unspecified Qualified Code(s): R07.9 - Chest pain, unspecified (2) CAD (coronary artery disease) Current Visit: No Status: Chronic Per cardiology: -Known CAD s/p STEMI 10/2017 with PCI to RCA. -Underwent staged PCI to circumflex 11/2017. Other than stenosis that underwent PCI, no significant disease noted on [facility] report. -ON asa, brilinta, Statin, BB. Denies missed doses of dual anti-platelet therapy. Educated on importance of dual anti-platelet therapy uninterrupted for at least one year, states understanding. -Again, as above, will check limited TTE. Qualifiers: Coronary Disease-Associated Artery/Lesion type: [place] artery [place] vs. transplanted heart: [place] heart Associated angina: with unspecified angina Qualified Code(s): I25.119 - Atherosclerotic heart disease of [place] coronary artery with unspecified angina pectoris (3) Squamous cell lung cancer Current Visit: No Status: Chronic Per cardiology: -Known left lung cancer. -Chest x-ray and most recent chest CT with more pronounced left lung opacity consistent with progression of disease. -Follows with [facility]. Had completed radiation and chemotherapy. Now currently on immunotherapy. -Management per primary service. Qualifiers: Laterality: left Qualified Code(s): C34.92 - Malignant neoplasm of unspecified part of left bronchus or lung Discussion w patient/family: The assessment and plan as outlined above was discussed with the patient who expressed understanding and agreement. All questions were answered. Thank you for involving us in the care of your patient. Please call with any questions. Discussed and reviewed with . History of Present Illness Consult date: 01/26/18 Requesting physician: Meryl R [place] Consult reason: chest pain Chief complaint: chest pain History of present illness: Mr. 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 with complaints of chest pain. Patient states pain is left sided, occurred while at rest. States pain worse with inspiration. Denies alleviating factors. States somewhat similar to previous angina. Denies current chest pain. Denies worsening shortness of breath. Denies increased fatigue. Past Med Surg Social Fam HX - Past Medical History Attestation: Yes The following information was validated with the patient. Source: patient, old records reviewed Medical history: cancer, coronary artery disease, hepatitis, hyperlipidemia, hypertension, myocardial infarction, other Additional medical history: hepatitis C, 2 heart stents, left lung cancer, Psychiatric history: anxiety, depression - Past Surgical History Surgical History: splenectomy - Social History Smoking Status: Current every day smoker Smokeless Tobacco Status: No Alcohol use: heavy Drug use: none - Family History Mother History Unknown: Yes Medications and Allergies Budesonide/Formoterol 160/4.5 [Symbicort 160/4.5] 2 puff IH BIDR 02/11/17 [ History] Trazodone HCl 100 mg PO QPM 02/11/17 [History] Albuterol Sulfate [Proair Hfa] 2 puff IH Q4H PRN 10/09/17 [History] Aspirin Enteric Coated [Aspirin EC] 81 mg PO DAILY 10/09/17 [History] HYDROcodone/Acet 5/325 mg [[place] 5-325 mg] 1.5 tab PO Q6H PRN 10/09/17 [History] Carvedilol [Coreg] 3.125 mg PO BIDWM #30 tablet 10/12/17 [Rx] Rosuvastatin [Crestor] 40 mg PO HS 11/23/17 [History] Ticagrelor [Brilinta] 90 mg PO BID 11/23/17 [History] Nitroglycerin [Nitrostat] 0.4 mg SL PRN PRN #30 tab.subl 11/24/17 [Rx] Dronabinol [Marinol] 5 mg PO BID 30 Days #60 capsule 01/21/18 [Rx] Cholecalciferol (D-3) [Vitamin D] 1,000 unit PO DAILY 01/26/18 [History] Diclofenac Sodium [Voltaren] 75 mg PO BID 01/26/18 [History] Lisinopril [Zestril] 20 mg PO DAILY 01/26/18 [History] Meclizine HCl [Verticalm] 25 mg PO Q6H PRN 01/26/18 [History] Venlafaxine HCl [Venlafaxine HCl ER] 225 mg PO DAILY 01/26/18 [History] 3 Allergy/AdvReac Type Severity Reaction Status Date / Time No Known Allergies Allergy Verified 12/23/17 12:54 All Systems Review: The remainder of the systems were reviewed and are negative - Cardiovascular Cardiovascular: as per HPI, chest pain at rest Physical Examination Vital Signs, Last 4 Hours Temp Pulse Resp BP Pulse Ox 01/27/18 07:31 98 F 76 17 129/79 96 General: Conversant, No Apparent Distress HEENT: Atraumatic, Normocephaly, Mucus Membranes Moist Neck: No JVD, Normal carotid pulses Cardiac: Reg Rate and Rhythm, Normal S1 and S2, No Murmur Lungs: Normal Breath Sounds, No Wheeze, Rales, Rhonchi Neuro: Alert and responsive, No focal deficits noted Abdomen: Soft, Non-Tender Skin: No rashes noted on visualized skin Musculoskeletal: No Chest Wall Tenderness Extremities: No Clubbing, No Cyanosis, No Edema, Normal Pulses Results 01/27/18 01:42 01/27/18 01:42 Lab Results Impressions Chest X-Ray 01/26/18 13:57 IMPRESSION: More pronounced left perihilar and lung opacity compared with the previous evaluation with loss of volume. This may represent progression of disease as this patient is known to have lung cancer. D/ / 01/26/2018 14:26:15 Richelle Kelly MD / binta Interpreting Provider: Richelle Kelly MD Active Medications Hydrocodone Bitart/Acetaminophen ([place] 5-325 Mg) 1.5 tab PO Q6H PRN PRN Reason: Pain Last Admin: 01/27/18 05:55 Dose: 1.5 tab Albuterol Sulfate (Albuterol Inhaler) 2 puff IH Q4H PRN PRN Reason: Shortness Of Breath Stop: 07/28/18 16:00 Last Admin: 01/26/18 20:40 Dose: 2 puff Aspirin (Aspirin) 81 mg PO DAILY [facility] Stop: 07/29/18 09:01 Last Admin: 01/27/18 09:34 Dose: 81 mg Benzonatate (Tessalon) 100 mg PO TID [facility] Stop: 07/28/18 21:01 Last Admin: 01/27/18 09:34 Dose: 100 mg Budesonide/Formoterol Fumarate (Symbicort) 2 puff IH BIDR [facility] PRN Reason: Protocol Stop: 07/28/18 22:01 Last Admin: 01/26/18 20:41 Dose: 2 puff Carvedilol (Coreg) 3.125 mg PO BIDWM [facility] PRN Reason: Protocol Stop: 07/28/18 17:01 Last Admin: 01/27/18 09:34 Dose: 3.125 mg Dronabinol (Marinol) 5 mg PO BID [facility] Stop: 07/28/18 21:01 Last Admin: 01/27/18 09:33 Dose: 5 mg Hydroxyzine HCl (Hydroxyzine) 25 mg PO BID PRN PRN Reason: Itching Lisinopril (Zestril) 5 mg PO DAILY [facility] PRN Reason: Protocol Stop: 07/29/18 09:01 Last Admin: 01/27/18 09:34 Dose: 5 mg Nitroglycerin (Nitroglycerin) 0.4 mg SL Q5MIN PRN PRN Reason: Chest Pain Stop: 07/28/18 15:29 Ondansetron HCl (Zofran) 4 mg IVP Q6HR PRN; Protocol PRN Reason: Nausea Stop: 07/28/18 15:29 Rosuvastatin Calcium (Crestor) 40 mg PO HS [facility] Stop: 07/28/18 21:01 Last Admin: 01/26/18 20:50 Dose: 40 mg Ticagrelor (Brilinta) 90 mg PO BID [facility] Stop: 07/28/18 21:01 Last Admin: 01/27/18 09:34 Dose: 90 mg Trazodone HCl (Trazodone) 100 mg PO HS [facility] Stop: 07/28/18 21:01 Last Admin: 01/26/18 22:08 Dose: 100 mg Venlafaxine HCl (Effexor Xr) 75 mg PO DAILY [facility] Stop: 07/29/18 09:01 Last Admin: 01/27/18 09:33 Dose: 75 mg Vitamin D (Vitamin D) 1,000 unit PO DAILY [facility] Stop: 07/29/18 09:01 Last Admin: 01/27/18 09:34 Dose: 1,000 unit Laboratory Tests 01/26/18 01/26/18 01/27/18 14:05 20:14 01:42 Hgb Creatinine Troponin I < 0.03 < 0.03 < 0.03 01/27/18 01/27/18 01/27/18 01:42 01:42 08:25 Hgb 13.1 D Creatinine 0.70 Troponin I < 0.03 - Imaging and Cardiology Chest Xray: report reviewed Echo: pending, report reviewed Cardiac cath: report reviewed - EKG Interpretation EKG results cardiology: personally reviewed (ECG with SR, HR 85. Inferior ST segment abnormalities note, similar to previous.), other (Telemetry reviewed with average HR previous 12 hours noted to be 76, SR. PVCs and PACs noted.) Consult Discharge Plan - Plan [facility]errals: [facility] [Non-Partnered Physician] -
[2018-01-27] MEDS: Budesonide/Formoterol 160/4.5 MDI IH SCH ×2 (10:58→20:30)
--- NOTE | 2018-01-27 16:54 | Internal Med Progress Note ---
Date of Encounter: 01/27/18 Time of Encounter: 16:51 - Assessment and plan (1) Chest pain Current Visit: No Status: Acute Assessment and plan: Per cardiology: -Admitted with chest pain, atypical. Worsens with deep inspiration. -Denies exertional symptoms. -Denies current chest pain. -ECG reviewed with no acute ischemic changes noted. -Troponins negative x3. -Last TTE 10/2017 with LVEF 55%, mild concentric LVH, mild MR, mild-moderate AR, no segmental wall motion abnormalities noted. -Will check limited echo. if normal or no significant change, will dc pt and outpt f/u. -Can consider outpatient stress test if has recurrence of symptoms. Pt refused to return to the facility he came from. We will need re-cert for another NH. anticipate discharge 1-2 days. Qualifiers: Ischemic chest pain type: unspecified angina pectoris type Qualified Code(s ): I25.9 - Chronic ischemic heart disease, unspecified (2) CAD (coronary artery disease) Current Visit: No Status: Chronic Assessment and plan: Per cardiology: -Known CAD s/p STEMI 10/2017 with PCI to RCA. -Underwent staged PCI to circumflex 11/2017. Other than stenosis that underwent PCI, no significant disease noted on [facility] report. -ON asa, brilinta, Statin, BB. Denies missed doses of dual anti-platelet therapy. Educated on importance of dual anti-platelet therapy uninterrupted for at least one year, states understanding. Qualifiers: Coronary Disease-Associated Artery/Lesion type: [place] artery [place] vs. transplanted heart: [place] heart Associated angina: with angina and documented spasm Qualified Code(s): I25.111 - Atherosclerotic heart disease of [place] coronary artery with angina pectoris with documented spasm (3) Essential hypertension Current Visit: No Status: Acute Assessment and plan: BP controlled, continue home meds. (4) Squamous cell carcinoma Current Visit: No Status: Chronic Assessment and plan: CXR showed progression of lung cancer, pt regularly f/u with [facility]. - Time Spent With Patient Total time spent is greater than 50% in coordination of care (as documented) at patient's floor/unit and/or counseling patient: Greater than 35 minutes - Subjective Interval history: pt currently pain free. - Constitutional Vitals: Temp Pulse Resp BP Pulse Ox 98.2 F 79 16 133/72 93 01/27/18 15:45 01/27/18 15:45 01/27/18 15:45 01/27/18 15:45 01/27/18 15:45 General appearance: Present: A&O X 3, answers questions appropriately Exam: PHYSICAL EXAMINATION: GENERAL APPEARANCE: The patient is alert, oriented and in no acute distress. HEENT: Head is normocephalic. The sinuses are nontender. Pupils are equal and reactive. The nares are patent. Oropharynx clear without lesions. NECK: Supple without lymphadenopathy. HEART: Regular rate and rhythm. LUNGS: No crackles or wheezes are heard. ABDOMEN: Soft, nontender, nondistended with good bowel sounds heard. Inguinal area is normal. EXTREMITIES: Without cyanosis, clubbing or edema. NEUROLOGICAL: Gross nonfocal. SKIN: Warm and dry without any rash. Internal Medicine: Result - Labs CBC & Chem 7: 01/27/18 01:42 01/27/18 01:42 Labs: Short CBC 01/27/18 Range/Units 01:42 WBC 8.0 (4.3-11.1) K/mcL Hgb 13.1 D (12.9-16.9) g/dL Hct 39.0 (37.5-50.1) % Plt Count 471 H (140-400) K/mcL Neutrophils # 4.8 (1.6-8.9) K/mcL BMP 01/27/18 01:42 Sodium 139 Potassium 4.2 Chloride 107 Carbon Dioxide 27 BUN 18 Creatinine 0.70 Glucose 116 H Calcium 9.0 Cardiac Enzymes 01/26/18 01/27/18 01/27/18 Range/Units 20:14 01:42 08:25 Troponin I < 0.03 < 0.03 < 0.03 (< 0.04) ng/mL Liver Function 01/27/18 Range/Units 01:42 Total Bilirubin 0.2 L (0.3-1.0) mg/dL AST 23 (13-39) Units/L ALT 16 (7-52) Units/L Alkaline Phosphatase 118 H (34-104) Units/L Albumin 3.3 L (3.5-5.7) g/dL - ABG Interpretation ABG results: PT/INR, D-dimer PT 11.4 Seconds (9.4-12.1) 01/27/18 01:42 - VTE Documentation of Mechanical Device: Venous foot pump, device Consult Discharge Plan - Plan Referrals: [facility] [Non-Partnered Physician] -
--- NOTE | 2018-01-27 19:56 | Electrocardiograph Report ---
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
[2018-01-27] MEDS: traZODone 50 MG TABLET PO SCH (21:46)
[2018-01-27] MEDS: Nicotine 21 MG PATCH.TD24 TD SCH (21:47)
[2018-01-28 07:34] VITALS: BP 125/81
[2018-01-28] MEDS: Budesonide/Formoterol 160/4.5 MDI IH SCH (07:57)
[2018-01-28] MEDS: Benzonatate 100 MG CAPSULE PO SCH (08:43)
[2018-01-28] MEDS: Cholecalciferol (D-3) 1,000 UNIT TABLET PO SCH (08:43)
[2018-01-28] MEDS: Aspirin 81 MG TAB.CHEW PO SCH (08:43)
[2018-01-28] MEDS: Venlafaxine XR (24 HR) 75 MG CAP.ER.24H PO SCH (08:43)
[2018-01-28] MEDS: *HR* Ticagrelor 90 MG TABLET PO SCH (08:43)
[2018-01-28] MEDS: Nicotine 21 MG PATCH.TD24 TD SCH (08:44)
[2018-01-28] MEDS: *HR* HYDROcodone/Acet 5/325 mg TABLET PO PRN (09:02)
--- NOTE | 2018-01-28 10:54 | Discharge Summary ---
- NOTES TO OUTPATIENT PROVIDER Notes to Outpatient Provider: f/u with PCP within a week,. f/u with cardiology within 2 weeks. Date of Encounter: 01/28/18 Time of Encounter: 10:48 - Discharge Diagnosis (1) Chest pain Priority: Primary Status: Acute Qualifiers: Ischemic chest pain type: unspecified angina pectoris type Qualified Code(s ): I25.9 - Chronic ischemic heart disease, unspecified (2) CAD (coronary artery disease) Priority: Secondary Status: Chronic Qualifiers: Coronary Disease-Associated Artery/Lesion type: [place] artery [place] vs. transplanted heart: [place] heart Associated angina: with angina and documented spasm Qualified Code(s): I25.111 - Atherosclerotic heart disease of [place] coronary artery with angina pectoris with documented spasm (3) Essential hypertension Priority: Secondary Status: Chronic (4) Squamous cell carcinoma Priority: Secondary Status: Chronic Hospital course: Mr. Preciado is a 57 year old male with history of alcohol abuse, Hep C, COPD, and CAD. Patient reported pressure-like pain chest pain that began 2 weeks ago. Pain has been intermittent, anginal equivalent pain. Patient had a STEMI back in November 2017 with 2 stents placed, over a 30 day period. 1 stent in med circ and 1 in the RCA. Today's chest x-ray showed more pronounced left perihilar and lung capacity, compared with previous study, could show disease progression of lung CA. Patient currently receiving hormone therapy every 2 weeks. Patient indicated he had 30 treatments of chemotherapy in the past. Troponin is less than 0.03. EKG showed mild elevation in leads 2, 3, aVF. Per the ED note, the patient did not meet the STEMI criteria. Cardiology saw the patient. The patient had a Echo 10/2017, that showed an EF of 55% and mild LVH. repeat ECHO revealed preserved EF. Cardiology recommended outpatient f/u. Pt will be discharged today. Time spent discussing smoking cessation with patient: more than 10 minutes - Time Spent with Patient Total time spent providing and/or coordinating discharge services: Greater than 30 minutes - Discharge Medications Home Medications: Budesonide/Formoterol 160/4.5 [Symbicort 160/4.5] 2 puff IH BIDR 02/11/17 [ History] Trazodone HCl 100 mg PO QPM 02/11/17 [History] Albuterol Sulfate [Proair Hfa] 2 puff IH Q4H PRN 10/09/17 [History] Aspirin Enteric Coated [Aspirin EC] 81 mg PO DAILY 10/09/17 [History] HYDROcodone/Acet 5/325 mg [[place] 5-325 mg] 1.5 tab PO Q6H PRN 10/09/17 [History] Carvedilol [Coreg] 3.125 mg PO BIDWM #30 tablet 10/12/17 [Rx] Rosuvastatin [Crestor] 40 mg PO HS 11/23/17 [History] Ticagrelor [Brilinta] 90 mg PO BID 11/23/17 [History] Nitroglycerin [Nitrostat] 0.4 mg SL PRN PRN #30 tab.subl 11/24/17 [Rx] Dronabinol [Marinol] 5 mg PO BID 30 Days #60 capsule 01/21/18 [Rx] Cholecalciferol (D-3) [Vitamin D] 1,000 unit PO DAILY 01/26/18 [History] Lisinopril [Zestril] 20 mg PO DAILY 01/26/18 [History] Meclizine HCl [Verticalm] 25 mg PO Q6H PRN 01/26/18 [History] Venlafaxine HCl [Venlafaxine HCl ER] 225 mg PO DAILY 01/26/18 [History] Venlafaxine XR (24 HR) [Effexor XR] 75 mg PO DAILY cap.er.24h 01/28/18 [Rx] Allergies/Adverse Reactions: 3 Allergy/AdvReac Type Severity Reaction Status Date / Time No Known Allergies Allergy Verified 12/23/17 12:54 Date of admission: 01/26/18 14:53 Primary care physician: Sandra Bell MD Consults: 01/26/18 15:28 Consult to Cardiology [CONS] Routine Comment: Cardiology notified by ED staff Consulting Provider: Joe Alvarado Reason for Consult: Chest pain Time Notified: 15:32 Call Completed: No Anticipated date of discharge: 01/28/18 - Constitutional Vitals: Temp Pulse Resp BP Pulse Ox 98.2 F 83 18 125/81 96 01/28/18 07:29 01/28/18 07:29 01/28/18 07:58 01/28/18 07:29 01/28/18 07:58 General appearance: Present: A&O X 3, answers questions appropriately Exam: PHYSICAL EXAMINATION: GENERAL APPEARANCE: The patient is alert, oriented and in no acute distress. HEENT: Head is normocephalic. The sinuses are nontender. Pupils are equal and reactive. The nares are patent. Oropharynx clear without lesions. NECK: Supple without lymphadenopathy. HEART: Regular rate and rhythm. LUNGS: No crackles or wheezes are heard. ABDOMEN: Soft, nontender, nondistended with good bowel sounds heard. Inguinal area is normal. EXTREMITIES: Without cyanosis, clubbing or edema. NEUROLOGICAL: Gross nonfocal. SKIN: Warm and dry without any rash. - Patient Status Disposition: Home, Self-Care Condition: Good Functional capacity at discharge: independent ambulation Overall status at discharge: patient is back to baseline - Discharge Instructions Follow Up With: [facility] [Non-Partnered Physician] - - Diet and Activity Activity: increase activity as tolerated Diet: low fat, low cholesterol, low salt diet - VTE Documentation of Mechanical Device: Venous foot pump, device
--- NOTE | 2018-01-28 12:35 | Physician Discharge Referral ---
Home Health/Hosp Referral Info Transfer to: Home Health - Diagnosis (1) Chest pain Priority: Primary Status: Acute (2) CAD (coronary artery disease) Priority: Secondary Status: Chronic (3) Essential hypertension Priority: Secondary Status: Chronic (4) Squamous cell carcinoma Priority: Secondary Status: Chronic - Respiratory Orders Smoking Cessation: Smoking cessation has been advised. For more information, call the [place] Tobacco Quit Line at 6-933-EYCA-NOW. - Diet/Nutrition Diet/Nutrition Orders: Cardiac - Activity Activity Orders: Up ad alessandro - Services Needed Following services are medically necessary services: Nursing, Home Health Aide, Physical Therapy, Occupational Therapy - Transfer Medications Home Medications: Budesonide/Formoterol 160/4.5 [Symbicort 160/4.5] 2 puff IH BIDR 02/11/17 [ History] Trazodone HCl 100 mg PO QPM 02/11/17 [History] Albuterol Sulfate [Proair Hfa] 2 puff IH Q4H PRN 10/09/17 [History] Aspirin Enteric Coated [Aspirin EC] 81 mg PO DAILY 10/09/17 [History] HYDROcodone/Acet 5/325 mg [[place] 5-325 mg] 1.5 tab PO Q6H PRN 10/09/17 [History] Carvedilol [Coreg] 3.125 mg PO BIDWM #30 tablet 10/12/17 [Rx] Rosuvastatin [Crestor] 40 mg PO HS 11/23/17 [History] Ticagrelor [Brilinta] 90 mg PO BID 11/23/17 [History] Nitroglycerin [Nitrostat] 0.4 mg SL PRN PRN #30 tab.subl 11/24/17 [Rx] Dronabinol [Marinol] 5 mg PO BID 30 Days #60 capsule 01/21/18 [Rx] Cholecalciferol (D-3) [Vitamin D] 1,000 unit PO DAILY 01/26/18 [History] Lisinopril [Zestril] 20 mg PO DAILY 01/26/18 [History] Meclizine HCl [Verticalm] 25 mg PO Q6H PRN 01/26/18 [History] Venlafaxine HCl [Venlafaxine HCl ER] 225 mg PO DAILY 01/26/18 [History] Venlafaxine XR (24 HR) [Effexor XR] 75 mg PO DAILY cap.er.24h 01/28/18 [Rx] Allergies/Adverse Reactions: 3 Allergy/AdvReac Type Severity Reaction Status Date / Time No Known Allergies Allergy Verified 12/23/17 12:54 Certification: Further, I certify that my clinical findings support that this patient is homebound (i.e. absences from home require considerable and taxing effort and are for medical reasons or tenriism services or infrequently or short duration when for other reasons) because: Homebound Reason: Severity of cardiac or pulmonary status limits activity tolerance Attestation: My signature below is to certify that this patient is under my care and that I, or nurse practitioner, or a physician's paraprofessional education assistant working with me, has a face-to -face encounter with this patient.
--- NOTE | 2018-01-28 12:38 | Cardiology Progress Note ---
Date of Encounter: 01/28/18 Time of Encounter: 12:00 Assessment and Plan (1) Chest pain Current Visit: Yes Status: Acute Per cardiology: Admitted with atypical chest pain. Described pleuritic chest pain. EKG showed SR with diffuse elevation, no change from previous EKGs, no acute changes. Troponins negative x3. TTE shows preserved EF. S/p PCI RCA 10/2017 and staged PCI to Lcx 11/2017 No further cardiac testing recommended at this time. Continue medical management. Consider out-pt stress test if recurrent symptoms. Out-pt f/u with Dr. Sherman will be coordinated by [facility]. Qualifiers: Chest pain type: unspecified Qualified Code(s): R07.9 - Chest pain, unspecified (2) CAD (coronary artery disease) Current Visit: No Status: Chronic Per cardiology: -Known CAD s/p STEMI 10/2017 with PCI to RCA. -Underwent staged PCI to circumflex 11/2017. Other than stenosis that underwent PCI, no significant disease noted on [facility] report. -ON asa, brilinta, Statin, BB. Denies missed doses of dual anti-platelet therapy. Educated on importance of dual anti-platelet therapy uninterrupted for at least one year, states understanding. Qualifiers: Coronary Disease-Associated Artery/Lesion type: [place] artery [place] vs. transplanted heart: [place] heart Associated angina: with angina and documented spasm Qualified Code(s): I25.111 - Atherosclerotic heart disease of [place] coronary artery with angina pectoris with documented spasm (3) Squamous cell lung cancer Current Visit: No Status: Chronic Per cardiology: -Known lung cancer. -Chest x-ray and most recent chest CT with more pronounced left lung opacity consistent with progression of disease. -Follows with [facility]. Had completed radiation and chemotherapy. Now currently on immunotherapy. -Management per primary service. Qualifiers: Laterality: left Qualified Code(s): C34.92 - Malignant neoplasm of unspecified part of left bronchus or lung (4) Tobacco abuse Current Visit: No Status: Chronic Smoking cessation discussed. States he has nicotine patches at home. Discussion w patient/family: The assessment and plan as outlined above was discussed with the patient and/or family members who expressed understanding and agreement. All questions were answered. Thank you for involving us in the care of your patient. Please call with any questions. Subjective Principal diagnosis: Chest pain Interval history: Denies recurrent chest pain. In process of being discharged by primary team. Objective Vital Signs Temp Pulse Resp BP Pulse Ox 01/28/18 07:58 18 96 01/28/18 07:29 98.2 F 83 18 125/81 97 01/28/18 03:25 99.0 F 87 16 106/54 95 01/27/18 23:10 98.0 F 77 16 109/63 95 01/27/18 20:32 94 01/27/18 20:30 18 95 01/27/18 19:31 97.8 F 80 16 129/74 95 01/27/18 15:45 98.2 F 79 16 133/72 93 Intake and Output 01/27/18 01/28/18 01/28/18 23:59 07:59 15:59 Output Total 280 / 280 Balance -280 / -280 Output: Urine 280 / 280 Other: Percent of Meal Consumed 100% Weight 76.6 kg 65.045 kg Patient Weight 01/28/18 23:59 Weight 65.045 kg General: Conversant, No Apparent Distress HEENT: Atraumatic, Normocephaly, Mucus Membranes Moist Neck: No JVD, Normal carotid pulses Cardiac: Reg Rate and Rhythm, Normal S1 and S2, No Murmur Lungs: Normal Breath Sounds, No Wheeze, Rales, Rhonchi Neuro: Alert and responsive, No focal deficits noted Abdomen: Soft, Non-Tender Skin: No rashes noted on visualized skin Musculoskeletal: No Chest Wall Tenderness Extremities: No Clubbing, No Cyanosis, No Edema, Normal Pulses Results 01/27/18 01:42 01/27/18 01:42 - Imaging and Cardiology Echo: report reviewed - EKG Interpretation EKG results cardiology: personally reviewed - VTE Documentation of Mechanical Device: Venous foot pump, device Consult Discharge Plan - Plan Referrals: Sandra Bell MD [Primary Care Provider] - 02/04/18 9:45 am [facility] [Non-Partnered Physician] -
== END 2018-01-28 13:25 | disposition home or self-care (01) ==
LOC: EMEROO 13:48 → 3BNU 13:48
PROVIDERS: ADMIT Internal Medicine; ATTEND Internal Medicine